=== PATIENT | male | born 1935 | race Caucasian/White ===

== ENCOUNTER 2019-09-25 11:50 | Day surgery (SDC) | payer MEDICARE ==
[~2019-09-25] VITALS: Ht 193 cm; Wt 82.5 kg
[~2019-09-25 11:50] MED LIST: ACETAMINOPHEN500 MG PO; AMLODIPINE BES2.5 MG PO; ASPIR 8181 MG PO; CO Q-10100 MG PO; FISH OIL-OMEGA1 EACH PO; LO-DOSE ASPIRIN81 M1 PO; VITAMIN D31000 UNI1 PO; WARFARIN SODIUM5 MG PO
--- NOTE | 2019-09-25 13:35 | NUR ---
09/25/19 1335 Josey Uriostegui 1328: PT ARRIVES TO PACU SLEEPY, BUT RESPONDS TO VERBAL STIMULATION. NO C/O PAIN OR DISCOMFORT. SREEDHAR 1335: DR. PINZON AT BEDSIDE.
--- NOTE | 2019-09-25 20:47 | OR ---
[facility] [address], [place] [address] Signed DATE OF OPERATION: 09/25/2019 SURGEON: Dede Pinzon MD PREOPERATIVE DIAGNOSES: 1. Significant episode of cervical dysphagia related to pill. 2. Upper GI showing marked aspiration without initiation of cough. POSTOPERATIVE DIAGNOSIS: No sign of neoplasm or esophageal web; normal upper endoscopy including stomach and duodenum. PROCEDURE: Esophagogastroduodenoscopy with biopsy. ANESTHESIA: Intravenous sedation, fentanyl 100 mcg, Versed 3 mg. INDICATION: This 84-year-old white man is a patient of Dr. Hilda Mckay and referred for an episode of significant cervical dysphagia related to swallowing a pill. An upper GI was performed, which was reported earlier that showed massive aspiration only variably initiating a cough. A speech therapy modified swallow was undertaken, on that occasion showing no aspiration. He seems not to have a problem with thickened liquids or solids. He has had no weight loss or significant dysphagia. He has been on warfarin and other medications. Notably, his brother of esophageal cancer. He is admitted to undergo upper endoscopy to better characterize the problem understanding the risks of bleeding, infection, and perforation. FINDINGS: There is no lesion to account for cervical dysphagia, specifically no neoplasm or esophageal web. The remaining study was normal as well. There was no sign of Parsons's epithelium. The flap valve was reasonably good. DESCRIPTION OF PROCEDURE: The patient was brought to the endoscopy suite and given topical Hurricaine spray hypopharyngeal anesthesia and placed in lateral decubitus position. He was given intravenous sedation to the point of slurred speech and nystagmus with full cardiopulmonary monitoring. A bite block was placed. An Olympus video upper endoscope was passed in the hypopharynx. The vocal cords appeared normal. Scope was able to be Electronically Signed By: DEDE PINZON MD 09/25/19 2047 PATIENT NAME: KERLINE WETZEL OPERATIVE REPORT DATE OF : 35 REPORT #: [id number] PHYSICIAN: DEDE PINZON MD PCP: HILDA MCKAY MD REPORT IS CONFIDENTIAL AND NOT TO BE RELEASED WITHOUT AUTHORIZATION [facility] [address], [place] [address] Signed passed in the esophagus without impediment. Examination throughout the entire esophagus showed it to be normal. Stomach was evaluated fully and was normal as well. The scope was passed through the pylorus into the duodenum, which was also normal. Biopsies were taken of the duodenum to assess for celiac disease. The scope was withdrawn and biopsied the antrum to assess for H pylori and so on. CLOtest was noted to be -15 minutes post procedure. Retroflexed view showed a good flap valve. The scope was withdrawn to the distal esophagus, which was biopsied also, which showed no sign of Parsons's or stricture or neoplasm. Midesophageal and proximal esophageal biopsies were obtained to assess for the eosinophilic esophagitis. The scope was removed. The patient was taken to recovery room in good condition. CONCLUDING DIAGNOSIS: Essentially normal exam. PLAN: We will review the pathology report. In the meantime, have him stay on thickened liquids or solids primarily. He will return to the ongoing care of Dr. Mckay. MD JESSICA Carreon/ROSARIOL /[id number] cc: Hilda Mckay MD Copies: HILDA MCKAY MD ~ Electronically Signed By: DEDE PINZON MD 09/25/19 2047 PATIENT NAME: KERLINE WETZEL JUSTUS OPERATIVE REPORT DATE OF : 35 REPORT #: [id number] PHYSICIAN: DEDE PINZON MD PCP: HILDA MCKAY MD REPORT IS CONFIDENTIAL AND NOT TO BE RELEASED WITHOUT AUTHORIZATION
--- NOTE | 2019-09-26 12:27 | PATH ---
[facility] [address] [place], [place] [address] Signed SPECIMEN(S): A DUODENUM NOS SPECIMEN(S): B ANTRUM/PYLORUS SPECIMEN(S): C LOWER ESOPHAGUS SPECIMEN(S): D MIDDLE ESOPHAGUS SPECIMEN(S): E UPPER ESOPHAGUS SPECIMEN SOURCE: A. DUODENUM NOS B. ANTRUM/PYLORUS C. LOWER ESOPHAGUS D. MIDDLE ESOPHAGUS E. UPPER ESOPHAGUS CLINICAL HISTORY: Dysphagia. Postop: Normal. MICROSCOPIC DESCRIPTION: A, B. Histologic sections of all submitted blocks are examined by light microscopy. These findings, together with the gross examination, support the pathologic diagnosis. C. Sections reveal biopsies of esophageal mucosa composed of stratified squamous nonkeratinizing epithelium. The basal cell layer is minimally prominent and rete ridges are mildly elongated. Small numbers of intraepithelial lymphocytes are present. Intraepithelial eosinophils are not a feature. A small amount of submucosa is present, containing small numbers of plasma cells and lymphocytes. No glandular mucosa is present. There is no evidence of malignancy or atypia. D. Sections reveal biopsies of esophageal mucosa composed of stratified squamous nonkeratinizing epithelium. The basal cell layer is not prominent and rete ridges are not elongated. Small numbers of intraepithelial lymphocytes are seen. Intraepithelial eosinophils are not a feature. No glandular mucosa is present. There is no evidence of malignancy or atypia. E. Sections reveal a biopsy of esophageal mucosa composed of stratified squamous nonkeratinizing epithelium. The basal cell layer is not prominent and rete ridges are not elongated. Small numbers of plasma cells and lymphocytes are present within the mucosa proper. No intraepithelial eosinophils are present. The submucosa contains small numbers of plasma cells and lymphocytes. No glandular mucosa is present. There is no evidence of malignancy or atypia. LJA:cml PATIENT NAME: KERLINE WETZEL PATHOLOGY DATE OF : 35 REPORT #: [id number] PHYSICIAN: ANDREW PATHOLOGY PCP: HILDA SQUIRES MD REPORT IS CONFIDENTIAL AND NOT TO BE RELEASED WITHOUT AUTHORIZATION [facility] [address] [place], [place] [address] Signed FINAL PATHOLOGIC DIAGNOSIS: A. Mucosa, duodenum, biopsy: - Duodenal mucosa with mildly blunted villous architecture. - Negative for acute inflammation and excess intraepithelial lymphocytes. B. Mucosa, antrum, biopsy: - No microscopic pathologic diagnosis. - Negative for the presence of bacteria morphologically consistent with Helicobacter on HE stained sections. C. Mucosa, lower esophagus, biopsy: - Mild chronic esophagitis with features suggestive but not diagnostic of reflux. D. Mucosa, middle esophagus, biopsy: - No microscopic pathologic diagnosis. E. Mucosa, upper esophagus, biopsy: - Mild chronic esophagitis. LJA:cml:C2NR GROSS DESCRIPTION: Five specimens are received in five containers, labeled "WL." A. The specimen, labeled "WL, duodenal biopsy," is received in formalin and consists of a single 0.2 cm fraire-brown tissue fragment. Specimen is entirely submitted in cassette (A1). B. The specimen, labeled "WL, antrum biopsy," is received in formalin and consists of two fraire tissue fragments both measuring 0.2 cm. Specimen is entirely submitted in cassette (B1). C. The specimen, labeled "WL, lower esophageal biopsy," is received in formalin and consists of two fraire tissue fragments both measuring 0.2 cm. Specimen is entirely submitted in cassette (C1). D. The specimen, labeled "WL, mid-esophageal biopsy," is received in formalin and consists of a single 0.3 cm fraire tissue fragment. Specimen is entirely submitted in cassette (D1). E. The specimen, labeled "WL, upper esophageal biopsy," is received in formalin and consists of two, 0.2 and 0.4 cm fraire tissue fragments. Specimen is entirely submitted in cassette (E1). AM (under the direct supervision of a pathologist) The Gross Description was prepared using a voice recognition system. The report was reviewed for accuracy; however, sound-alike word errors, addition and/or deletions may occur. If there is any question about this report, please contact Client Services. PATIENT NAME: KERLINE WETZEL PATHOLOGY DATE OF : 35 REPORT #: [id number] PHYSICIAN: ANDREW JOSEPH PCP: HILDA SQUIRES MD REPORT IS CONFIDENTIAL AND NOT TO BE RELEASED WITHOUT AUTHORIZATION [facility] [address] [place], [place] [address] Signed PERFORMING LABORATORY: The technical component was performed by [facility] [address] (Integration Solution Architect: Ana Laura Hall MD; CLIA# [id number]). [facility] [address] [address] (Integration Solution Architect: Otilio Ureña MD; CLIA# [id number]). Diagnostician: Otilio Ureña MD Pathologist Electronically Signed 09/26/2019 Copies: ~ PATIENT NAME: KERLINE WETZEL PATHOLOGY DATE OF : 35 REPORT #: [id number] PHYSICIAN: ANDREW PATHOLOGY PCP: HILDA SQUIRES MD REPORT IS CONFIDENTIAL AND NOT TO BE RELEASED WITHOUT AUTHORIZATION
== END 2019-09-25 14:15 | disposition home or self-care (01) ==
LOC: DS 11:50 → OPS 11:50 → DS 13:00 → OPS 13:00
PROVIDERS: Surgery
PROC: 0DB28ZX Excision of Middle Esophagus, Via Natural or Artificial Opening Endoscopic, Diagnostic (ICD-10-PCS; 2019-09-25)
PROC: 0DB38ZX Excision of Lower Esophagus, Via Natural or Artificial Opening Endoscopic, Diagnostic (ICD-10-PCS; 2019-09-25)
PROC: 0DB18ZX Excision of Upper Esophagus, Via Natural or Artificial Opening Endoscopic, Diagnostic (ICD-10-PCS; 2019-09-25)
PROC: 0DB78ZX Excision of Stomach, Pylorus, Via Natural or Artificial Opening Endoscopic, Diagnostic (ICD-10-PCS; 2019-09-25)
PROC: 0DB98ZX Excision of Duodenum, Via Natural or Artificial Opening Endoscopic, Diagnostic (ICD-10-PCS; principal; 2019-09-25 13:00)
DX: K20.9 Esophagitis, unspecified (principal); E78.5 Hyperlipidemia, unspecified; E03.9 Hypothyroidism, unspecified; I48.91 Unspecified atrial fibrillation; D68.8 Other specified coagulation defects; R45.89 Other symptoms and signs involving emotional state
CPT/HCPCS: G0500; J2250; J3010; J7121

== ENCOUNTER 2022-02-04 02:44 | Emergency (ER) | payer MEDICARE ==
[~2022-02-04] VITALS: Ht 193 cm; Wt 82.0 kg
[~2022-02-04 02:44] MED LIST changes: +AMLODIPINE BESYL5 MG PO
== END 2022-02-04 05:57 | disposition home or self-care (01) ==
LOC: ED 02:44
DX: R31.0 Gross hematuria (principal); R79.1 Abnormal coagulation profile; N28.9 Disorder of kidney and ureter, unspecified; I48.91 Unspecified atrial fibrillation; I10 Essential (primary) hypertension; Z79.899 Other long term (current) drug therapy; Z79.01 Long term (current) use of anticoagulants
CPT/HCPCS: 36415; 51702; 80053; 81001; 85025; 85610; 85730; 99283-25

== ENCOUNTER 2022-08-05 22:09 | Inpatient (IN) | payer MEDICARE ==
[~2022-08-05] VITALS: Ht 190.5 cm; Wt 82.9 kg
[~2022-08-05 22:09] MED LIST changes: +GEMTESA75 MG PO; +NORVASC5 MG PO; +NYSTATIN15 GM TOP
--- OUTSIDE RECORDS SUMMARY | 2022-08-05 22:12 | XMS ---
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 - 2 Visits in 30 Days CARE PROVIDERS [facility] Internal Medicine Current PHONE: [phone] [place] has no Care Guidelines for this patient. Charlie VISIT COUNT (12 MO.) 3 [facility] TOTAL 3 NOTE: Visits indicate total known visits. ED/UCC VISIT TRACKING (12 MO.) 08/05/2022 22:11 [facility] [place] TYPE: Emergency COMPLAINT: - FEVER, WEAKNESS, COVID+ 08/05/2022 12:16 [facility] [place] TYPE: Emergency COMPLAINT: - R WRIST WOUND 02/04/2022 02:45 [facility] [place] TYPE: Emergency COMPLAINT: - BLOOD IN URINE, CONSTIPATION DIAGNOSES: - senior care (current) use of anticoagulants - Other terminologist (current) drug therapy - Gross hematuria - Disorder of kidney and ureter, unspecified - Essential (primary) hypertension - Abnormal coagulation profile - Hematuria, unspecified - Unspecified atrial fibrillation INPATIENT VISIT TRACKING (12 MO.) No inpatient visits to display in this time frame [email or web address]
--- NOTE | 2022-08-06 06:45 | NUR ---
Admitted from ED at 0530,[id number] via stretcher, walked from stretcher to bed. alert,oriented, pleasant and cooperative. NEWHALEN using hearing aids. multiple scabbed over areas L knee, RFA and RW, echymotic area arms. pt on chronic Coumadin. Tele/cpox #[address], afib, denies c/o CP, dry non productive cough noted after completion of admit questionaire/assessment, On room air, lungs dim at bases L more than Right. turns and repositions self. wearing home compression stocking bilat, edema to ankles +1, very dry skin. used urinal, voided clear yellow urine. QS, on regular diet, would like to be kidney and coumadin friendly, kitchen notified. Oriented to room and Isolation procedures. 2 daugthers in room with pt.
--- NOTE | 2022-08-06 07:04 | NUR ---
Received patient report, eyes on patient. Patient resting in bed with daughter in room.
--- NOTE | 2022-08-06 09:39 | NUR ---
PT IN BED. FAMILY PRESENT IN ROOM. VITALS AND IS AND OS TAKEN. PT FAMILY ASKED OF WHAT "COVID IV HE RECIEVED LAST NIGHT". LET PT FAMILY KNOW I WILL LET RN KNOW OF QUESTION. NO NEEDS AT THIS TIME. CALL LIGHT WITHIN REACH.
--- NOTE | 2022-08-06 10:25 | NUR ---
MED REC COMPLETE
--- NOTE | 2022-08-06 11:30 | NUR ---
Checked on patient, patient is sleeping in bed with sister in room. O2 sats are good in the 90's.
--- NOTE | 2022-08-06 12:52 | NUR ---
PT IN BED. FAMILY MEMBER IN ROOM. I'S AND OS COMPLETE. NO NEEDS. CALL LIGHT WITHIN REACH.
--- NOTE | 2022-08-06 13:00 | NUR ---
Spoke with pt and daughters. Pt lives alone in [place], in the last few months. He denies any needs, daughter states he walks 4 miles per day. He does not use any DME. Pt Drives. He plans on dc to home when he is cleared for dc. Daughter lives 2 houses away and will check in on him frequently.
--- NOTE | 2022-08-06 14:19 | NUR ---
DUE TO PRECAUTIONS, I AM UNABLE TO VISIT PT. WILL FOLLOW NEEDED
--- NOTE | 2022-08-06 15:30 | NUR ---
Lung sounds assessed. Fine crackles to LLL. Dr. Funez notified. Orders to continue to monitor at this time. Patient educated on IS, demonstrated use with inspiration to 1750 on IS. Educated on importance of maintaining deep breathing with IV fluids infusing, Covid diagnosis and decreased activity. Verbalizes understanding.
--- NOTE | 2022-08-06 16:52 | NUR ---
Patient's labs improving, continuous fluids running throughout the day, with sufficient output.
--- NOTE | 2022-08-06 20:18 | EKG ---
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
--- NOTE | 2022-08-06 20:55 | NUR ---
Pt continues on Respiraoty Isolation precautions, covid+, on room air, lungs clear, dim LLQ and fine crackles , no cough at this time as per his statement. tele/cpox#[address] sats 97%, Sinus Rhtyhm, denies CP. Alert and orineted, cooperative with assessment, turns and repositions self in bed, IV infusing RW, patent, using urinal, clear yellow urine, QS. uses call light. fresh fluids at hands reach
--- NOTE | 2022-08-06 22:05 | NUR ---
CONT ON aIRBORNE PRECATUIONS, AWAKE, LAB IN ROOM, NO C/O PAIN, TELE/CPOX [address] SV RHYTHM, SATS 97%. IVF INFUSING, CALL LIGHT AND FLUIDS AT BEDSIDE.
--- NOTE | 2022-08-06 23:57 | NUR ---
pT CONT ON ISOLATION PRECAUTIONS. AWAKES EASILY, TELE/CPOX#[address], SATS 95%, SINUS RHTYTHM. NO CP NO DISTRESS. CALL LIGHT AND FLUIDS AT BEDSIDE, USED URINAL, VODIING QS.
--- NOTE | 2022-08-07 02:41 | NUR ---
PT AWAKES EASILY, NO DISTRESS, ONROOM AIR, CPOX/TELE INPLACE, SATS 97%, SV RHYTHM-SR, DENIES CP, NO SOB. TURNS AND REPOSITIONS SELF IN BED. USES URINAL. CALL LIGHT AND FLUIDS AT HANDS REACH
--- NOTE | 2022-08-07 05:05 | NUR ---
Pt continues on respiratory isolation precautions. On room air, lungs clear except at Left lower lobe dim and fine crackles, no cough stated this shift. alert oriented, cooperative, tolerating liquids well, no n/v, used urinal, voiding QS clear urine. No bm since admission. IVF infusing w/o problems
--- NOTE | 2022-08-07 08:10 | NUR ---
PT ASSESSMENT AND MEDICATION ADMINISTRATION COMPLETED. IV FLUIDS RUNNING, BAG / IS RUNNING AT 250ML/HR. PT C/O MILD PAIN IN BUE. NO OTHER COMPLAINTS ATT. PT IS A/O, RESPIRATIONS EVEN AND REGULAR. FAMILY AT BEDSIDE. HEARING AIDS CHARGING.
--- NOTE | 2022-08-07 08:16 | NUR ---
NURSE CHAVA HELPED PT THIS AM. SISTER IN ROOM. PT HAS NO OTHER NEEDS AT THIS TIME. CALL LIGHT WITHIN REACH.
--- NOTE | 2022-08-07 10:09 | NUR ---
ROUNDED ON PT. PT AMBULATED WITH WALKER FROM CHAIR TO BED. VS TAKEN. DENIES NEEDS ATT.
--- NOTE | 2022-08-07 10:30 | NUR ---
INTO ROOM TO SPEAK WITH PATIENT AND HIS DAUGHTER GIL. GIL STATES THE PATIENT IS IN NEED OF A NEW RECLINING CHAIR AT HOME AND WANTED TO KNOW IF WE HAD ANY SUGGESTIONS. I ADVICED THAT NORMALLY WE INSTRUCT PATIENT TO OUR LOCAL FURNITURE COMPANY SO THEY ARE ARE TO SIT IN THE CHAIR TO SEE WHICH FITS BEST. DISCUSSED THAT THE PATIENT HAS A FEW CANES AT HOME WHICH HE IS COMFORTABLE USING FOR NOW. INFORMATION FOR [facility] GIVEN IN CASE THE PATIENT IS IN NEED OF DME IN THE FUTURE. NO FURTHER QUESTIONS FROM PATIENT OR DAUGHTER AT THIS TIME.
--- NOTE | 2022-08-07 11:01 | NUR ---
TO PT ROOM FOR START OF FLUIDS. PT IS AT EOB WITH PHYSICAL THERAPY. PT IS A/O, RESPIRATIONS EVEN AND REGULAR. DENIES NEEDS/COMPLAINTS ATT. CALL LIGHT WITHIN REACH.
--- NOTE | 2022-08-07 13:38 | NUR ---
ROUNDED ON PT. PT AMBULATED WITH WALKER FROM CHAIR TO BED. PT IS A/O, RESPIRATIONS EVEN AND REGULAR. IV FLUIDS RUNNING. CALL LIGHT WITHIN REACH. FAMILY AT BEDSIDE.
--- NOTE | 2022-08-07 14:27 | NUR ---
PT LYING IN BED AFTER MEAL, VITALS ALYSON/O'S COMPLETED. NO OTHER NEEDS AT THIS TIME, CALL LIGHT IN REACH.
--- NOTE | 2022-08-07 15:00 | NUR ---
PT ASSESSMENT COMPLETED. NEW BAG OF LR HUNG. PT IS A/O, RESPIRATATIONS EVEN AND REGULAR. CALL LIGHT WITHIN REACH. FAMILY AT BEDSIDE.
--- NOTE | 2022-08-07 16:37 | NUR ---
TO PT ROOM FOR MEDICATION ADMINISTRATION. PT IS A/O, RESPIRATIONS EVEN AND REGULAR. C/O ARM PAIN. TYLENOL GIVEN. FAMILY AT BEDSIDE. IV FLUIDS RUNNING.
--- NOTE | 2022-08-07 18:37 | NUR ---
ROUNDED ON PT. VS TAKEN, I/O'S DOCUMENTED. PT IS A/O, RESPIRATIONS EVEN AND REGULAR. NEW BAG OF IV FLUIDS STARTED. CALL LIGHT WITHIN REACH.
--- NOTE | 2022-08-07 20:14 | NUR ---
cont on resp isolation precautions. alert and oriented, on room air, coop. no c/o pain cont on tele#4 cpox 98 sats. call light and fluids at bs
--- NOTE | 2022-08-07 22:13 | NUR ---
PT CONTINUES ON RESPIRATORY ISOLATION PRECAUTIONS, ON ROOM AIR. LUNGS CLEAR, DIM AT LLL, MOIST NON PRODUCTIVE COUGH NOTED AT THIST JACIEL, CLEARS SECREATIONS C/O SORE THROAT WORSE THAN ON ADMISSION. BACK OF THROAT REDDISH COLORED, SMALL 2-3 THORNTON COLORED PATCHES NOTED UPPER BACK OF THROAT, NOT CLEARED WITH SWALLOWING OR AFTER DRINKING FLUIDS. ICE CHIPS GIVEN, WILL NOTIFY MD FOR FURTHER EVALUATION. ALERT, AWAKE, ORIENTED, PLEASANT AND COOPERATIVE WITH ASSESSMENT, TOLERATING LIQUIDS WELL, NO C/O CP OR SOB, TELE/CPOX #[address] SATS 98%, SR AT THIST JACIEL. USES URINAL, VOIDING QS, USES CALL LIGHT AT HANDS REACH. IVF INFUSING W/O PROBLEMS RFA.
--- NOTE | 2022-08-08 01:02 | NUR ---
RESTING, EYES CLOSED, ON ROOM AIR, NO C/O PAIN, USES URINAL. IVF INFUSING. CALL LIGHT AT HANDS REACH
--- NOTE | 2022-08-08 05:17 | NUR ---
Pt cont on Respiratory Isolation precations. on room air, lungs clear except dim at LLL, moist, occassional non productive cough present. clears own oral secretions, c/o sore throat worse than on admit. red back of throat and small pineda discoloration not cleared after drinking water noted. will inform this am. pt tolerated ice chips and fluids well. IVF infusing at 250cc still, labs drawn has been slowly improving, see labs flow sheet. pt uses urinal, alert and oriented
--- NOTE | 2022-08-08 07:39 | NUR ---
Received patient report, eyes on patient. Patient resting in bed.
--- NOTE | 2022-08-08 09:00 | NUR ---
PATIENT ON CONTINUOUS FLUIDS, PRESSURE STOCKINGS REMOVED, PATIENT COMPLAINS OF SHOULDER PAIN IN LEFT ARM. WAS UNABLE TO SLEEP WELL THROUGHOUT THE NIGHT FROM THE PAIN EVEN AFTER RECEIVING TYLENOL. PATIENT GIVEN A DOSE OF PRN TYLENOL AND PAIN HAS IMPROVED. RESTING IN BED WITH SISTER IN ROOM.
--- NOTE | 2022-08-08 14:39 | NUR ---
IV FLUIDS DC'D IN COMPUTER SYSTEM. DR. REYNOLDS NOTIFIED. STATES HE WILL PUT IN AN ORDER FOR IV FLUIDS, DOES WANT TO CONTINUE THEM.
--- NOTE | 2022-08-08 17:04 | NUR ---
PATIENT REMAINS ON CONTINUOUS FLUIDS, LABS IMPROVING. PATIENT WORKED WITH PT TODAY, TOLERATED WELL. PATIENT COMPLAINS OF PAIN OF LEFT SHOULDER, MANEAGEABLE WITH TYLENOL.
--- NOTE | 2022-08-08 19:20 | NUR ---
pt sitting up in bed, awake, ivf infusing, no c/o pain. pt instructed on pot void residual bladder scanning, and need to call RN as sonn as he voided, stated understanding. Cont on isolation precautions, on room air
--- NOTE | 2022-08-08 22:46 | NUR ---
Pt on Respiratory Isolation Precautions. pleasant, cooperative, alert and oriented. Helps with repositioning in bed. On room air, lung much improved, clear bilat. moist non productive cough present. IS at bedside. encoruraged t use 10X?hr WA, hands on at this time, up to 1500 to 1750. temp 99.0 skin warm. cont to encourage IS usage. abd slightly firm at lower quads compared to yesterday. KEILY, had a bm 08/07, Pt denies abd pain. Bruising of arms and acabbed areas over arms and L knee much improved. L eye with slight redness at conjuctivae, denies visual chagnes or burning, no drainage. IVF infusing w/o problems. dressing over RW and L elbow present. noted to have 1+ edema and pendulous below L elbow area, and was grabbing L wrist with R arm. unknown cause, c/o light weakness since working with PT yesterday and c/o L shoulder pain, medicated with Tylenol, able to raise arm very slowly, pulses present. did not try and reach over head or across. No c/o sore throat today, "I feel better, ice chips helped". Pt had voided X2 40-60 minutes earlier using urinal. did not call RN, instructed again staed "I forgot, I will call you after I pee next time". Bladder scanned x3 and it showed 60-61cc post void. denies needing to use urinal again. voided 450cc Pt denies needing to get up to br to empty bladder "I can use urinal just laying here just fine" stated. each time, denies burning, pain or urgency when urinating. Call light at hands reach, tolerating fluids well, no emesis.
--- NOTE | 2022-08-08 23:47 | NUR ---
PT USED CALL LIGHT, VOIDED USING URINAL 125CC CLEAR YELLOW URINE. POST VOID RESIDUAL 40CC PER SCANNER, DENIES NEEDING TO USE URINAL AGAIN.
--- NOTE | 2022-08-09 00:19 | NUR ---
used call light, voided 125cc urine using urinal, in bed. bladder scanned less than 4cc in bladder as per scanner. Pt concerned that he still feels like his bladder is very full. scanned again slower, same results. no distention noted with assessment. will notify in am
--- NOTE | 2022-08-09 01:44 | NUR ---
Pt on resp isolation precautions. on room air, resting, eyes closed, hob elevated, no distress, cpox/tele#[address] afib, sats 99%.
--- NOTE | 2022-08-09 05:44 | NUR ---
pt awakees easily, coop with vitals , able to move L arm better, minimum of edema below elbow noted. standing scale weight done 84.9kg. pt admit weight was 76.4 bed scale. no changes lungs no sob, occ rare moist non productive cough present. tele#[address] Funez notified via phone of weight. will SL IVF after completion and he will reassess after labs results. Pt voided QS yellow urine, plus was incontinent of large amount of urine, attends and chux. skin care done, clean chux and attends given. Pt unaware that he was incontinent of urine. Noted that pt had a hard time moving from bed to scale. unsteady, wobbly reqired much assist. seemed to have increaed weakness of L leg. home pressure stockings were removed yeesteday. pt edemat to LE 1+ non pitting. SOB with exertion noted at that time. Back to bed, sats tele 94%
--- NOTE | 2022-08-09 05:56 | NUR ---
Pt continues on Respiratory Isolation Precautions. On room air, lungs clear bilat, moist non productive cough present ocassionally. Pt up to scale for standing scale weight of 84.9KG, SOB present with exertion, Pt required maximum of assist to sit edge of bed. seemed to favor L leg more slowly and weaker. scabbed saman over L knee healing, 1+ edema to ankles present. Pt also had some L shoulder pain and had some trouble lifiting arm, edema to area below L elbow was noted at begining of shift, resolved and much better rotation and elevation of L arm noted, improvcing bruising of arms. Pt was worried over not being able to empty his bladder and feeling very full bladder. was bladder scanned several times with minimum of urine left on bladder noted during scannning. see previous notes. Pt was incontinent of very large amount of urine when standing up. pt seemed unaware that he was wet. skinc are clean attends in place. IVF infusing, new orders from Dr Funez to when bag completed until MD sees lab results from this AM. Pt tolerating liquids well and uses call light. Tele/CPOX in place irregular rate and rhythm from SR, SVR to sinus sapna to afib with frequent SVPB's and PVC's pt denies chest pain. sats dropped to low 70's pt had takes finger pulse off and also seems to drop when he uses urinal and once when he was sleeping soundly. finger site changed. [place] wears hearing aids, pleasant and cooperative
--- NOTE | 2022-08-09 07:07 | NUR ---
SAMI at this time.
--- NOTE | 2022-08-09 07:20 | NUR ---
RECEIVED PATIENT REPORT, EYES ON PATIENT, PATIENT RESTING IN ROOM WITH DAUGHTER IN ROOM.
--- NOTE | 2022-08-09 12:03 | NUR ---
PATIENT IS SLEEPING IN CHAIR, WOULD LIKE TO REMAIN IN CHAIR FOR MOST OF THE DAY WITH FEET ELEVATED. PATIENT'S DAUGHTER IS REQUESTING TO SPEAK TO THE DOCTOR ABOUT DISCHARGE PLAN.
--- NOTE | 2022-08-09 12:15 | NUR ---
DR. REYNOLDS NOTIFIED FAMILY WOULD LIKE TO CONFERENCE CALL HIM TO ASK QUESTIONS. NUMBER FROM FAMILY PROVIDED. STATES HE WILL CALL THEM AND SPEAK WITH THEM TODAY.
--- NOTE | 2022-08-09 14:33 | NUR ---
VITALS AND I/O DONE. PATIENT IS RESTING IN CHAIR, DENIES OTHER NEEDS.
--- NOTE | 2022-08-09 16:24 | NUR ---
PATIENT HAS BEEN RESTING IN CHAIR FOR MOST OF THE DAY, HIS LABS HAVE IMPROVED AND HE HAS BEEN SALINE LOCKED. FAMILY HAD TELECONFERENCE WITH DR. BRONSON, PATIENT WAS UP IN ROOM WITH PT, TOLERATED WELL. TYLENOL GIVEN IN A.M. FOR PAIN CONTROL ON HIS LEFT SHOULDER, HIS PAIN HAS BEEN CONTROLLED SINCE TYLENOL WAS GIVEN.
--- NOTE | 2022-08-09 16:57 | NUR ---
Patient sitting up in recliner. Family member in room. Denies needs. Curtain left open to room so staff may visualize patient, per family request. Patient does call appropriately and has not attempted to get up without assist.
--- NOTE | 2022-08-09 19:41 | NUR ---
RECEIVED REPORT FROM DAY SHIFT RN. PATIENT IS RESTING IN BED. DAUGHTER AT BEDSIDE NO NEEDS NOTED. CALL LIGHT IN REACH.
--- NOTE | 2022-08-09 21:57 | NUR ---
PATIENT ASSESMENT COMPLETED. PATIENTS VITALS TAKEN AND RECORDED. INTAKE AND OUTPUT RECORDED. FRESH ICE WATER PROVIDED. PATIENT COMPLETED IS X3. PATIENT IS ON RA AND DENIES ANY SOB. PATIENTS PM MEDS GIVEN PER ORDER. PATIENT DENIES ANY PAIN. PATIENT REPOSITIONED IN BED. PAITENTS IV FLUSHED AND SL PER ORDER. PATIENT IS AAOX4. PATIENT DENIES ANY FURTHER NEEDS. CALL LIGHT IN REACH.
--- NOTE | 2022-08-10 00:17 | NUR ---
PATIENT IS RESTING IN BED WITH EYES CLOSED, RR 17. CALLL LIGHT IN REACH.
--- NOTE | 2022-08-10 02:57 | NUR ---
PATIENT REPOSITIONED IN BED. PATIENTS TELE BATTERY CHANGED. URINAL EMPTIED. FRESH ICE WATER PROVIDED. NO NEEDS NOTED. CALL LIGHT IN REACH. Pt REMAINS ON RA
--- NOTE | 2022-08-10 04:22 | NUR ---
PATIENT IS RESTING IN BED WITH EYES CLOSED, RR 16. CALL LIGHT IN REACH.
--- NOTE | 2022-08-10 06:21 | NUR ---
PATIENT IS RESTING IN BED. PATIENT REPOSITIONED. VITALS TAKEN AND RECORDED. URINAL EMPTIED. INTAKE AND OUTPUT RECORDED. WARM BLANKET X2 PROVIDED. PATIENT DENIES ANY PAIN. PATIENT DENIES ANY NEEDS. CALL LIGHT IN REACH. LAB IN TO DRAW BLOOD.
--- NOTE | 2022-08-10 07:05 | NUR ---
Received patient report, eyes on patient, patient is sleeping in bed.
--- NOTE | 2022-08-10 10:10 | NUR ---
INTO PATIENT TOOM TO DISCUSS ONGOING DISCHARGE DISPOSITION FOR THE PATIENT. PATIENT DAUGHTER GIL AT THE BEDSIDE. PATIENT AND GIL REQUESTING TO HAVE A CONFERENCE CALL WITH DAUGHTER MIKHAIL AND SON TERELL. CONFERENCE CALL FACILITATED BY DAUGHTER GIL. DISCUSSED WITH THE PATIENT AND FAMILY OPTION REGARDING PLACEMENT OF THE PATIENT TO SNF, PENITENTIARY OR DISCHARGE TO HOME. THE FAMILY IS VERY HESITANT TO HAVE THE PATIENT DISCHAGED HOME WITHOUT 24 HOUR CARE DUE TO HIS RECENT FALL AT HOME. MIKHAIL ALSO STATES THAT LAST NIGHT DURING HER VISIT THE PATIENT WAS HAVING DIFFICULTIES GETTING UP FROM THE CHAIR TO THE RESTROOM. DISCUSSED WITH FAMILY THAT THE PATIENT MAY NOT QUALIFY FOR SNF PLACEMENT. IT IS ALSO IN MY OPINION THAT THE PATIENT WOULD NOT THRIVE IN A SNF GIVEN HIS PRIOR INDEPENDANCE. PRIOR TO HIS FALL THE PATIENT WAS WALKING DAILY, SOME OF WHICH INCLUDED MULTIPLE SETS OF STAIR. DURING THIS CONVERSATION THE PATIENT AND FAMILY STATES HE HAD BEEN DEALING WITH INTERMITTANT [facility] FOR THE PAST FEW YEARS. THE PATIENT STATES HE WAS TO HAVE A VISIT WITH THE [facility] IN [facility], BUT HAS CANCELED. WITH FURTHER QUESTIONING THE PATIENT WAS SUFFERING FROM SOME SYMPTOMS THE WEDNESDAY PRIOR TO HIS FALL. PATIENTS SON TERELL DISCUSSING POSSIBILITY OF PLACEMENT TO THE [facility] IN [place] THE PATIENTS HAD LIVED THERE IN THE PAST AND THE PATIENT ENJOYED THE FACILITY. TERELL STATES HE WOULD MAKE CONTACT WITH THE [facility] TO INQUIRE ABOUT ROOM AVAILABILITY AND COVID POLICY. DISCUSSED SEVERAL CONCERNS ABOUT THE PATIENT CARE WITH THE FAMILY. WHEN ASKED THE PATIENT STATES HE AGREES TO PLACEMENT, BUT WOULD LOVE TO LIVE INDEPENDENTLY AGAIN. WILL MEET AGAIN WITH PATIENT AND FAMILY AT 1500 TODAY. WILL CONTACT VIMAL SANON ANOTHER PLACEMENT OPTION PRIOR TO THIS MEETING.
--- NOTE | 2022-08-10 12:15 | NUR ---
In room with patient, observed that his right forearm is red, edematous and warm to the touch. Notified Dr. Tay verbally of findings.
--- NOTE | 2022-08-10 14:22 | NUR ---
PATIENT IN BED RESTING, VISITOR IN ROOM. VITALS AND I&O'S CHARTED. SEKOU COFFEY RN NOTIFIED. CALL LIGHT IN REACH. NO FURTHER NEEDS AT THIS TIME.
--- NOTE | 2022-08-10 14:26 | NUR ---
Sitting up in bed. Family at bedside. States he is not feeling as well today. Temp is elevated. Dr. Tay notified. No new orders at this time. Did inform patient and family elevated temp could be related to Covid. Will continue to monitor at this time.
--- NOTE | 2022-08-10 15:00 | NUR ---
CONFERENCE CALL WITH PATIENT, DAUGHTER GIL, SON TERELL AND DAUGHTER JEFF AT THE BEDSIDE. ADVISED THAT I HAD SPOKE WITH NITIN AT [facility], THEY WOULD BE ABLE TO ACCEPT THE PATIENT ON DAY 9 OF HIS COVID QUARANTINE. PER TERELL PATIENT SON HE HAS SPOKEN WITH THE ADMINISTRATION AT [facility] [place] THEY HAD A PREVIOUS FAMILY MEMBER THERE. AFTER SPEAKING WITH HAROON AT THE [facility] IT HAS BEEN DETERMINED THAT THEY COULD ACCEPT THE PATIENT ON RESPITE AT THIS TIME. TERELL CONVEYS THAT [facility] HAS VERIFIED THAT THE PATIENT SECONDARY INSURANCE WILL COVE MOST OF THE COST. AT THIS TIME THE PATIENT AND FAMILY AGREES TO REFERRAL FOR PLACEMENT TO BE SENT TO THE [facility]. CONTACT INFORMATION: FRANCIS AT THE [facility], PHONE # [phone], FAX # [phone]. WILL FOLLOW UP WITH FACILITY REGARDING PLACEMENT.
--- NOTE | 2022-08-10 17:01 | NUR ---
Patient remained in bed for most of the day, was up with PT and tolerated well. Had one episode of incontinence, had bedding changed. Patient's temperature is elevated at 100.6 this afternoon and has redness and dependent edema in left forearm, dr. Tay has been notified. Patient's family remains in his room and is very involved in his care.
--- NOTE | 2022-08-10 19:27 | NUR ---
REPORT RECEIVED FROM HI GARDNER. IMAGING IN ROOM. PT RESTING IN BED, RESPIRATIONS EVEN. CALL LIGHT IN REACH.
--- NOTE | 2022-08-10 22:45 | NUR ---
PICTURES TAKEN OF POSSIBLE CELLULITIS ON L FOREARM AND PLACED IN CHART. REDNESS OUTLINED WITH MARKER. R ARM BICEP CIRC. 11 CM, L ARM BICEP CIRC. 12.5 CM. R ARM UPPER FOREARM 11.5 CM, L ARM UPPER FOREARM 13.25 CM. PT DENIES ANY PAIN IN L ARM BUT IS UNABLE TO FULLY EXTEND ARM. L FOREARM FEELS WARM TO THE TOUCH.
--- NOTE | 2022-08-10 22:48 | NUR ---
PT ASSESSMENT COMPLETED, VITAL SIGNS AND I&O'S DOCUMENTED. PM MEDICATION GIVEN PER EMAR. PT A&O X4 AND DENIES ANY PAIN AT THIS TIME. L ARM WARM TO THE TOUCH AND REDNESS THROUGHOUT THE LOWER ARM. PICTURES TAKEN AND PLACED IN CHART, REDNESS OUTLINED WITH MARKER. PT ABLE TO EAT A SMALL SNACK. EDUACTED ON USE OF IS. BED RAILS UP X2 AND CALL LIGHT IN REACH. CONINUOUS CPOX MONITORING PER ORDERS. NO FURTHER NEEDS.
--- NOTE | 2022-08-11 00:20 | NUR ---
PT RESTING IN BED, RESPIRATIONS EVEN. HEARING AIDS PLUGGED IN PER REQUEST OF PT. DENIES FURTHER NEEDS. CALL LIGHT IN REACH, BED RAILS UP X2.
--- NOTE | 2022-08-11 02:15 | NUR ---
PT RESTING IN BED, EYES CLOSED, RR EVEN. L ARM ASSESSED AND REMAINS EDEMATOUS, RED, AND WARM. CONTINUOUS CPOX MONITORING. DENIES FURTHER NEEDS AT THIS TIME. CALL LIGHT IN REACH
--- NOTE | 2022-08-11 04:49 | NUR ---
PT RESTING IN BED, EYES CLOSED. 96% ON RA PER CONTINUOUS CPOX MONITOR. CALL LIGHT IN REACH, SIDE RAILS UP X2.
--- NOTE | 2022-08-11 05:35 | NUR ---
PT ASSESSMENT COMPLETED, VITAL SIGNS AND I&O'S DOCUMENTED. L FOREARM ASSESSED AND REMAINS EDEMATOUS AND RED. DENIES PAIN OR SOB. NO FURTHER NEEDS AT THIS TIME. CALL LIGHT IN REACH, BED RAILS UP X2.
--- NOTE | 2022-08-11 07:50 | NUR ---
PT IN BED. PT ASSISTED TO CHAIR BY FWW AND 1 SIEBEL ARCHITECT. WARM BLANKET AND ICE WATER GIVEN. BED MADE. NO NEEDS. CALL LIGHT WITHIN REACH.
--- NOTE | 2022-08-11 08:56 | NUR ---
MORNING ASSESSMENT COMPLETE. PT VITALS AND I&O'S RECORDED. PT JUST FINISHED BREAKFAST SITTING IN CHAIR TALKING WITH FAMILY. PT IS COMFORTABLE AND STATES ARM IS FEELING BETTER 0/10 PAIN. PT STATES NO FURTHER NEEDS AT THIS TIME. CALL LIGHT WITHIN REACH.
--- NOTE | 2022-08-11 09:27 | NUR ---
PATIENT UP TO BATHROOM WITH SBA AND FWW TO VOID AND BM. PHYSICAL THERAPY IS IN TO WORK WITH PATIENT.
--- NOTE | 2022-08-11 10:15 | NUR ---
In and spoke with family and Julieth added brother and sister on to conference call. Updated I have spoken with Dr. Tay and [facility]. Discussed our conversations. They would like dad to go to [facility] on Wednesday. Called Toribio back and let her know family are wanting pt to admit on Wednesday. [facility] will transport. Toribio would like the pt to admit no later than 1 pm. Tentatively set a dc time of 8 am on Wednesday.
--- NOTE | 2022-08-11 10:22 | NUR ---
IN TO ANSWER CALL LIGHT ABOUT CPOX ALARM. ALARM WAS NO LONGER ACTIVE WHEN I ENTERED THE ROOM. EDUCATED PATIENT AND FAMILY ABOUT CPOX PARAMETERS AND SIGINIFICANCE OF CPOX ALARM. PT SITTING IN CHAIR COMFORTABLY WATCHING TV. FEET ELEVATED. PILLOW PLACED UNDER FEET. CALL LIGHT WITHIN REACH. PT AND FAMILY STATE NO FURTHER NEEDS AT THIS TIME.
--- NOTE | 2022-08-11 10:59 | NUR ---
Spoke with Toribio from [facility]. She states they can accept this pt 9-10 days from he + covid test. This would be Wednesday. They are familiar with this family as pt lived with them for 5 years. They are not an SNF, but pt has termination clerk care benefits which will pay for him to go there. She would need, Signed orders, RX for any narcotics, signed order for PT. I will update Dr. Tay and the family.
--- NOTE | 2022-08-11 11:36 | NUR ---
IN FOR ROUNDING. PT RECLINED IN CHAIR RESTING COMFORTABLY WATCHING TV. PILLOW UNDERNEATH FEET AND FEET ELEVATED. FAMILY AT BEDSIDE. PT DENIES PAIN OR NAUSEA. PT STATES NO FURTHER NEEDS AT THIS TIME. CALL LIGHT WITHIN REACH.
--- NOTE | 2022-08-11 12:30 | NUR ---
REPORT GIVEN TO JJ LOUIS.
--- NOTE | 2022-08-11 12:30 | NUR ---
REPORT RECEIVED FROM PIPEMAN CARE ASSUMED. PT RESTING IN BED IS PRESENT IN THE ROOM. NEEDED ITEMS AT BEDSIDE
--- NOTE | 2022-08-11 13:56 | NUR ---
DUE TO PRECAUTIONS I AM UNABLE TO VISIT IN PERSON WITH PT. HE IS SCHEDULED TO DC TODAY. WILL FOLLOW
--- NOTE | 2022-08-11 14:00 | NUR ---
PT CONTINUES UP IN THE RECLINER FAMILY PRESENT X2. AGREES HE IS COMFORTABLE DENIESW NEED OF ANYTHING
--- NOTE | 2022-08-11 15:55 | NUR ---
SBA WHILE PT AMBULATED SEVERAL LAPS IN THE ROOM. PRESSURE RELIEF DISCUSSED WITH PT AND DAUGHTER WHO REMAINS PRESENT. PT WALKS FOR A LONG TIME APPEARS STEADY ON HIS FEET, RETURNS TO RECLINER. FRESH H20 TO CHAIR SIDE DENIES NEED OF OTHER ITEMS
--- NOTE | 2022-08-11 16:58 | NUR ---
DINNER GIVEN TO PT. PT RESTING COMFORTABLY IN CHAIR. FEET AND HOB ELEVATED. DAUGHTER AT BEDSIDE. PT DENIES PAIN OR NAUSEA. PT STATES NO FURTHER NEEDS AT THIS TIME.
--- NOTE | 2022-08-11 19:38 | NUR ---
RECEIVED REPORT FROM OFFGOING SHIFT, ACCEPTING CARE FOR THIS PATIENT. PT RESTING IN ROOM, CALL LIGHT WITHING REACH, NO COMPLAINTS AT THIS TIME.
--- NOTE | 2022-08-11 20:47 | NUR ---
IN PT ROOM FOR ROUNDING, VS, AND ASSESSMENT. PT IS IN GOOD SPIRITS, ABLE TO MAKE NEEDS KNOWN. PT WAS ASSISTED TO BED, WARM BLANKET PROVIDED. PT CALL LIGHT IN REACH, NO COMPLAINTS OF PAIN OR DISCOMFORT.
--- NOTE | 2022-08-11 23:59 | NUR ---
IN PT ROOM FOR ROUNDING, PT RESTING EASILY, NO SIGNS OF DISTRESS, BREATHING EVEN AND UNLABORED. CALL LIGHT WITHIN REACH.
--- NOTE | 2022-08-12 01:21 | NUR ---
IN PT ROOM FOR ROUNDING, PT RESTING EASY, BREATHING EASY, UNLABORED, NO COMPLAINTS OF PAIN OR DISCOMFORT.
--- NOTE | 2022-08-12 02:09 | NUR ---
IN PT ROOM FOR ROUNDING. PT RESTING COMFORTABLY, BREATHING EVEN, UNLABORED. PT CALL LIGHT IN REACH, NO COMPLAINT OF PAIN OR DISCOMFORT.
--- NOTE | 2022-08-12 03:05 | NUR ---
PT RESTING EASY IN ROOM, BREATHING EVEN AND UNLABORED. PT CALL LIGHT IN REACH, NO INDICATIONS OF PAIN OR DISCOMFORT.
--- NOTE | 2022-08-12 05:30 | NUR ---
IN PT ROOM FOR ROUNDING. PT RESTING, BREATHING EVEN AND UNLABORED. NO SIGNS OF PAIN OR DISCOMFORT. PT CALL LIGHT IS IN REACH
--- NOTE | 2022-08-12 07:25 | NUR ---
THIS RN RECIEVED SHIFT REPORT. PT RESTING AT THIS TIME. CALL LIGHT WITHIN REACH.
--- NOTE | 2022-08-12 08:35 | NUR ---
MORNING ASSESSMENT COMPLETE. PT COMPLAINED OF NO PAIN AT THIS TIME. RR EVEN AND UNLABORED. HR REGULAR. LUE EDEMA NOTED, REDUCED FROM PREVIOUSLY MARKED OUTLINE. NO REDDNESS AND WARMTH NOTED. PT STATES PAIN AND ROM IMPROVED. DAUGHTER AT BEDSIDE. CALL LIGHT WITHIN REACH.
--- NOTE | 2022-08-12 10:37 | NUR ---
PT LAYING IN BED TALKING ON THE PHONE. DAUGHTER AT BEDSIDE. CALL LIGHT WITHIN REACH.
--- NOTE | 2022-08-12 11:30 | NUR ---
Spoke with daughter, Irish and pt. Pt would like a walker, he is using when he walks with PT and he states his daughters don't want to transport him without one. Spoke with Dr. Voss and reviewed PT notes. Pt is use a FWW when ambulating with PT. Faxed H&P, progress notes, RX, and PT notes to [facility] and and spoke with Diamante,requested delivery tomorrow. NOtified [facility] pt will discharge to [place] earlier Wednesday AM.
--- NOTE | 2022-08-12 12:09 | NUR ---
PT EATING LUNCH. HAS NO COMPLAINTS AT THIS TIME. DAUGHTER AT BEDSIDE. CALL LIGHT WITHIN REACH.
--- NOTE | 2022-08-12 12:57 | NUR ---
PT LAYING IN BED WATCHING TV. PT HAS NO CONCERNS AT THIS TIME. CALL WITHIN REACH.
--- NOTE | 2022-08-12 13:40 | NUR ---
VS & I/O DONE AT THIS TIME. PT LAYING IN BED. NO COMPLAINT OF PAIN. DAUGHTER AT BEDSIDE. CALL LIGHT WITHIN REACH.
--- NOTE | 2022-08-12 14:49 | NUR ---
PT RESTING IN BED. DAUGHTER AT BEDSIDE. CALL LIGHT WITHIN REACH.
--- NOTE | 2022-08-12 15:15 | NUR ---
AFTERNOON ASSESSMENT COMPLETE. PT SITTING UP IN CHAIR. PT REPORTS NO PAIN AT THIS TIME. CALL LIGHT WITHIN REACH. DAUGHTER AT BEDSIDE.
--- NOTE | 2022-08-12 16:15 | NUR ---
PT TRANSFERED FROM CCU TO ROOM 112 VIA STRETCHER. A&O X3 BUT OFTEN FORGETFUL. ORIENTED TO CALL LIGHT, WITHIN REACH AND BED ALARM ON. ON 6L HIGH-FLOW AND TOLERATING WELL. RAC/RFA IV FLUSHED WITHOUT DIFFICULTY, AND SL. ASSESSED MIDLINE INCISION CDI WITH SAUL INTACT. PT REPORTS TENDER WHEN PALPATED. PT DENIES PAIN OR NEEDS AT THIS TIME.
--- NOTE | 2022-08-12 16:41 | NUR ---
Received phone message from Barby at [facility]. She states she thinks they will be able to accept this pt. She spoke with family and they wanted time to discuss.
--- NOTE | 2022-08-12 17:40 | NUR ---
PT SITTING UP IN CHAIR EATING DINNER. CALL LIGHT WITHIN REACH. DAUGHTER AT BEDSIDE. DENIES FURTHER NEEDS AT THIS TIME.
--- NOTE | 2022-08-12 18:01 | NUR ---
PT UP IN CHAIR. PT REPORTS NO PAIN AT THIS TIME. I&O AND VS DONE AT THIS TIME. CALL LIGHT WITHIN REACH. DENIES ANY FURTHER NEEDS.
--- NOTE | 2022-08-12 19:10 | NUR ---
SHIFT REPORT RECEIVED FROM DAYSHIFT JJ DURAN AND JJ OWEN, pt AWAKE AND RESTING IN BED. POSITIVE FOR COVID, ON RA. RR EVEN AND UNLABORED, NO DISTRESS NOTED. pt DENIES NEEDS OR CONCERNS, CALL LIGHT IN REACH.
--- NOTE | 2022-08-12 20:34 | NUR ---
ASSESSMENT COMPLETE, SCHEDULED MEDS GIVEN (SEE EMAR). pt A/OX4, VSS. pt ON RA, DENEIS PAIN AND NAUSEA BUT REQUESTS SCHEDULED EVENING TYLENOL D/T "ARTHRITIS PAIN AT NIGHT". IV SITE WNL, FLUSHES EASILY AND REMAINS SALINE LOCKED. HEARING AIDS PLACED IN PLASTIC SURGERY ASSISTANT PER pt REQUEST, FRESH ICE WATER PROVIDED. NO ADDITIONAL NEEDS, BED ALARM ON FOR SAFETY CURTAINS CLOSED PER pt REQUEST TO ASSIST IN SLEEP. BOARD UPDATED.
--- NOTE | 2022-08-12 23:21 | NUR ---
ROUNDED ON pt, pt RESTING IN BED WITH EYES CLOSED. ON RA, RR EVEN AND UNLABORED. NO DISTRESS NOTED, CALL LIGHT IN REACH AND BED ALARM ON CURTAINS FULLY CLOSED TO PROMOTE REST.
--- NOTE | 2022-08-13 00:58 | NUR ---
ROUNDED ON pt, pt AWAKE AND RESTING IN BED. DECLINES ELEVATING LUE AT THIS TIME, pt EDUCATED ON BENEFITS OF ELEVATION. pt CONTINUES TO KINDLY DECLINE. NO NEEDS OR CONCERNS, CALL LIGHT IN REACH. BED ALARM ON.
--- NOTE | 2022-08-13 01:41 | NUR ---
EMPTIED URINAL FOR pt, APPROX 500MLS OUTPUT NOTED-YELLOW IN COLOR. ASSESSMENT COMPLETE, NO ACUTE CHANGES. pt DENEIS PAIN AND NAUSEA, REMAINS ON RA. RR EVEN AND UNLABORED. CALL LIGHT IN REACH. BED ALARM ON FOR SAFETY.
--- NOTE | 2022-08-13 05:06 | NUR ---
ROUNDED ON pt, pt AWAKE AND RESTING IN BED. NO NEEDS OR CONCERNS VERBALIZED. CALL LIGHT IN REACH. BED ALARM REMAINS ON FOR SAFETY.
--- NOTE | 2022-08-13 06:14 | NUR ---
VS AND I&O'S CHARTED. FRESH WATER PROVIDED. NO ADDITIONAL NEEDS, LUE REMAINS ELEVATED, +2 EDEMA REMAINS NOTED TO LEFT FOREARM/ELBOW AREA. CALL LIGHT IN REACH.
--- NOTE | 2022-08-13 07:15 | NUR ---
RECIEVED SHIFT REPORT. PT RESTING IN BED WITH EYES CLOSED. BREATHING EVEN AND UNLABORED. CALL LIGHT WITHIN REACH.
--- NOTE | 2022-08-13 08:30 | NUR ---
MORNING ASSESSMENT COMPLETE. PT LAYING IN BED. PT STATED HE SLEPT REALLY WELL LAST NIGHT. DENIES ANY PAIN AT THIS TIME. LEFT EXTREMITY ELEVATED ON A PILLOW. NO REDDNESS OR PAIN NOTED. BREAKFAST TRAY SET UP. CALL LIGHT WITHIN REACH. DAUGHTER AT BEDSIDE.
--- NOTE | 2022-08-13 10:30 | NUR ---
PT UP IN ROOM WALKING WITH PHYSICAL THERAPY. DAUGHTER AT BEDSIDE.
--- NOTE | 2022-08-13 11:46 | NUR ---
PT SITTING UP IN CHAIR READY FOR LUNCH. DENIES PAIN AFTER PHYSICAL THERAPY. CALL LIGHT WITHIN REACH. DAUGHTER AT BEDSIDE.
--- NOTE | 2022-08-13 11:57 | NUR ---
Took patients vitals in AM. I&O complete. Patient wanted to sit on side of bed to shave his face. Before he could, physical therapy entered and worked with patient. While she was working with patient, I changed bed linens. Patient wanted to sit up in chair so he could finish up his ADL's.
--- NOTE | 2022-08-13 12:30 | NUR ---
PT UP IN RECLINER EATING LUNCH. CALL LIGHT WITHIN REACH. DENIES FURTHER NEEDS AT THIS TIME. DAUGHTER AT BEDSIDE.
--- NOTE | 2022-08-13 12:36 | NUR ---
PT STILL UNDER PRECAUTIONS, WILL FOLLOW ABLE
[2022-08-13] MEDS ORDERED: CEPHALEXIN500 MG PO (13:23)
[2022-08-13] MEDS ORDERED: WARFARIN SODIUM5 MG PO (13:24)
[2022-08-13] MEDS ORDERED: NORVASC5 MG PO (13:24)
--- NOTE | 2022-08-13 13:30 | NUR ---
CASE MANAGEMENT IN ROOM AT THIS TIME. PT REMAINS IN THE RECLINER AND DENIES ANY FURTHER NEEDS. CALL LIGHT WITHIN REACH. DAUGHTER AT BEDSIDE.
--- NOTE | 2022-08-13 14:50 | NUR ---
Spoke with daughter and pt. They deny any question. Walker was delivered today. Dr. Tay is completing orders for dc tomorrow. Will fax orders and papers as requested to [facility] when completed. Plan is for pt to leave by [phone] [phone].
--- NOTE | 2022-08-13 15:18 | NUR ---
AFTERNOON ASSESSMENT COMPLETE. PT UPRIGHT IN CHAIR. PT DENIES ANY PAIN AT THIS TIME. LEFT EXTREMITY NO CHANGES NOTED. ELEVATED ON PILLOW. CALL LIGHT WITHIN REACH. DAUGHTER AT BEDSIDE.
--- NOTE | 2022-08-13 17:52 | NUR ---
PT UP IN CHAIR. PIER RUNNER IN ROOM DOING VS AND I&O'S AT THIS TIME. DENIES FURTHER NEEDS AT THIS TIME. CALL LIGHT WITHIN REACH. DAUGHTER AT BEDSIDE.
--- NOTE | 2022-08-13 18:34 | NUR ---
PT SITTING IN RECLINER. CALL LIGHT WITHIN REACH.
--- NOTE | 2022-08-13 19:10 | NUR ---
RECEIVED REPORT FROM BRAYDEN GARDNER. PT IS SITTING IN CHAIR WATCHING TV. CALL LIGHT WITHIN REACH. NO FURTHER NEEDS AT THIS TIME.
--- NOTE | 2022-08-13 20:30 | NUR ---
PERFORMED PT ASSESSMENT, STRAW HAT PRESSER, AND VS. VSS. ASSISTED PT W/AMBULATION FROM CHAIR TO BED W/FWW. PT GAIT IS WEAK. PT REMAINS ON RA W/O2 SATS AT 100%. LUNGS ARE CLEAR THROUGHOUT. PT REPORTS PAIN AT 0/10 AND NO NUMBNESS/TINGLING IN EXTREMETIES. PULSES PRESENT THROUGHOUT AND KNEE HIGH COMPRESSION STOCKINGS IN PLACE ON LEGS BILAT. PT IS A&O. FRESH ICE WATER PROVIDED, CALL LIGHT WITHIN REACH, IV FLUSHED/SALINE LOCKED, NO FURTHER NEEDS AT THIS TIME.
--- NOTE | 2022-08-14 01:21 | NUR ---
PT CURRENTLY RESTING IN BED WITH EYES CLOSED. RESPIRATIONS ARE EVEN AND UNLABORED, NO SIGNS OF DISTRESSED. CALL LIGHT WITHIN REACH.
--- NOTE | 2022-08-14 06:20 | NUR ---
PERFORMED MORNING ASSESSMENT. NO ACUTE CHANGES FROM PREVIOUS ASSESSMENT. RECORDED 1100 FOR OUTPUT OVER THE NIGHT. LUNG SOUNDS REMAIN CLEAR. CELLULITIS IS +1 EDEMA WITH SLIGHT WARMTH. PT REPORTS PAIN 0/10. PT STATES NO NEW DIZZINESS, NUMBNESS/TINGLING, CHEST PAIN, OR NAUSEA. NOW RESTING IN BED ALERT & ORIENTED. CALL LIGHT WITHIN REACH, NO FURTHER NEEDS AT THIS TIME.
--- NOTE | 2022-08-14 06:56 | NUR ---
UNEVENTFUL NIGHT FOR PT. PT SLEPT THROUGH THE NIGHT. VSS. PAIN REPORTED 0/10. SLIGHT GENERALIZED EDEMA MARKED IN LEFT FA ALONG W/BRUISES FROM FALL. PT REMAINS ON RA. PULSES PRESENT THROUGHOUT AND COMPRESSION STOCKINGS ON BLE. GAIT IS WEAK AND PT USES FWW W/1PA. LUNGS SOUNDS ARE CLEAR THROUGHOUT. SUFFICIENT OUTPUT. PT TO DISCHARGE TO [place], [place].
--- NOTE | 2022-08-14 07:35 | NUR ---
PATIENT UP IN CHAIR, AM CARE COMPLETED. VITALS COMPLETED AND PT IS DRESSED, NO OTHER NEEDS AT THIS TIME. CALL LIGHT WITHIN REACH.
--- NOTE | 2022-08-14 08:06 | NUR ---
IV REMOVED WITH CATH INTACT. VITAL STABLE. DISCHARGE INSTRUCTIONS REVIEWED WITH PT. DAUGHTER HERE TO TRANSPORT. PT. LEFT WITH ALL BELONGINGS VIA WHEELCHAIR WITH GROOMING ASSISTANT.
== END 2022-08-14 08:00 | disposition home or self-care (01) | DRG 557 ==
LOC: ED 22:09 → MS 22:12
PROVIDERS: ADMIT Family Medicine; ATTEND Internal Medicine
PROC: 8E0ZXY6 Isolation (ICD-10-PCS; principal; 2022-08-08)
DX: M62.82 Rhabdomyolysis (principal); U07.1 COVID-19; L03.114 Cellulitis of left upper limb; I13.0 Hypertensive heart and chronic kidney disease with heart failure and stage 1 through stage 4 chronic kidney disease, or unspecified chronic kidney disease; I48.91 Unspecified atrial fibrillation; M25.512 Pain in left shoulder; Z79.01 Long term (current) use of anticoagulants; Z90.49 Acquired absence of other specified parts of digestive tract; Z98.890 Other specified postprocedural states; Z79.899 Other long term (current) drug therapy; I50.9 Heart failure, unspecified; W18.30XA Fall on same level, unspecified, initial encounter
CPT/HCPCS: 36415; 70450; 71045; 73030; 73070; 73090; 80048; 80053; 81001; 82553; 83880; 84484; 85025; 85610; 87502; 93005; 93010; 94760; 94762; 96361; 96374; 96375; 97110; 97116; 97162; 99285-25; A9270; J1940; J7121; U0003

== ENCOUNTER 2023-07-05 06:47 | Day surgery (SDC) | payer MEDICARE ==
[2023-07-01 13:47] VITALS: BP 150/69
[~2023-07-05] VITALS: Ht 190.5 cm; Wt 80.0 kg
[~2023-07-05 06:47] MED LIST changes: +AMOX TR-K CLV1 EAC1 PO; +CEPHALEXIN500 MG PO; +JANTOVEN5 MG PO; +OMEGA 3 FISH O1 EACH PO; +TORSEMIDE20 MG PO; +VITAMIN B-121000 MCG PO
--- NOTE | 2023-07-05 07:10 | NUR ---
CONNECTED WITH FAMILY IN HALLWAY. EXERCISED MINISTRY OF PRESENCE TALKED OF SHARED CONNECTIONS AND EXTENDED FAMILY. DENIED ANY NEEDS.
[2023-07-05 07:23] VITALS: BP 154/68
[2023-07-05 07:57] LABS: INR 1.37 (0.80-1.30); PROTIME 16.4 Sec (11.2-14.2)
--- NOTE | 2023-07-05 11:33 | NUR ---
07/05/23 1133 Taylor Jarquin 1129-PT TO PACU IN SF POSITION. DOES NOT RESPOND TO VERBAL OR TACTILE STIMULI. BREATHING EASY AND UNLABORED WITH ORAL AIRWAY IN PLACE. SPO2 >95% ON 8 L O2 VIA SIMPLE MASK.
[2023-07-05 11:59] VITALS: BP 138/61
--- NOTE | 2023-07-05 12:03 | NUR ---
RETURNED FROM PACU. TO GO HOME WITH PIÑA. FAMILY IN ROOM.
[2023-07-05 12:55] VITALS: BP 159/73
--- NOTE | 2023-07-05 13:41 | NUR ---
1315 SAT ON SIDE OF BED X5 MIN THEN STOOD FOR FEW MIN THEN TOOK STEPS. STATES HE FEELS FINE AND EVERYTHING IS MOVING CORRECTLY. DAUGHTER ASSISTING TOO. PT GOING TO HER HOUSE TONIGHT TO STAY. HAVE EXPLAINED CATHER AND DRAINAGE BAG TO BOTH. PT STATES HE HAS HAD CATHETER BEFORE.
--- NOTE | 2023-07-05 13:49 | NUR ---
1310 PT HAS OOZY SPOT UP FROM IV SITE WITH SKIN TOP OF SKIN ROLLED APPROX 1.5 CM. RFA. TOOK COBAN OFF L AC FROM LAB DRAW ALSO HAS TOP OF SKIN ROLLED AND OOZY APPROX 1.5 CM. SMALL ALLEVYN DRESSING TO BOTH WOUNDS. PT STATES A WEEK AGO HE HIT AT BUG ON R LEG AND PEELED SKIN WITH JUST HIS HAND. HAS VERY FRAGILE SKIN. DAUGHTER VIEWED EACH AND DRESSINGS PLACED.
--- NOTE | 2023-07-05 19:31 | OR ---
[facility] [address] [place], [place] [address] Signed DATE OF OPERATION: 07/05/2023 SURGEON: Colten Mancia MD PREOPERATIVE DIAGNOSES: 1. Multifocal bladder lesions. 2. Gross hematuria. POSTOPERATIVE DIAGNOSES: 1. Multifocal bladder lesions. 2. Gross hematuria. NAMES OF PROCEDURES: 1. Diagnostic cystoscopy. 2. Urethral dilation using Mcdowell sounds from 16-Swiss to 28-Swiss. 3. Transurethral resection of bladder tumor-medium. ANESTHESIA: General LMA. ESTIMATED BLOOD LOSS: 15 mL. COMPLICATIONS: None. SPECIMENS: Fragments of multiple papillary bladder tumors sent all together in one specimen to the lab for analysis. DRAINS: A 22-Swiss two-way Epps catheter, connected to gravity drainage. INDICATION FOR PROCEDURE: Mr. Wetzel is an 88-year-old gentleman who is well-known to me. He underwent evaluation for microhematuria 1-2 years ago and at that time, nothing of significance was found. He recently presented to me again with intermittent bouts of gross hematuria. He agreed to undergo diagnostic cystoscopy and was found to have multiple subcentimeter papillary lesions present within his bladder, namely two on the dome, one on the left lateral wall of the bladder and one just medial to the left ureteral orifice and one on the right Electronically Signed By: COLTEN MANCIA MD 07/05/231930 PATIENT NAME: KERLINE WETZEL OPERATIVE REPORT DATE OF : 35 REPORT #: [id number] PHYSICIAN: COLTEN MANCIA MD PCP: HILDA SQUIRES MD REPORT IS CONFIDENTIAL AND NOT TO BE RELEASED WITHOUT AUTHORIZATION [facility] [address] [place], [place] [address] Signed lateral wall of the bladder. He has been off his Coumadin now for six days and he presents today to undergo transurethral resection of multiple papillary bladder masses. OPERATIVE FINDINGS: 1. On cystoscopy I can again now appreciate approximately 5 subcentimeter papillary masses. The largest lesion I would say is approximately 1 cm in size and is located on the dome of the bladder. The smallest lesion is on the left lateral wall near the bladder neck. There is also a 3 mm lesion just medial to the left ureteral orifice. There was also diffuse grade 2-3 bladder wall trabeculation noted. 2. Prior to resection, the patient's urethral meatus and fossa navicularis were dilated using Matthew sounds from 16-Swiss to 28-Swiss without difficulty. 3. During the initial part of the resection, I was near the right lateral wall of the bladder and I was resecting one of the papillary tumors when the patient did experience an obturator reflex that did result in a deep laceration to the right lateral wall of the bladder. The laceration went down to the level of perivesical fat. However, it was not noted to be a true perforation. For the remainder of the procedure we were extra careful with inflow of our irrigation and we kept very close tabs on his ins and outs. At the end of the procedure, his ins and outs were equal. 4. All five papillary tumors were resected transurethrally using a bipolar 23-Swiss loop. All of them were resected down to the level of visible detrusor muscle tissue, and then cauterized appropriately for hemostasis. 5. At the end of the procedure, a 22-Swiss two-way Epps catheter was inserted in the patient's bladder and connected to gravity drainage. I chose not to instill any mitomycin today due to the presence of the deep laceration in the right lateral wall of the bladder. DESCRIPTION OF PROCEDURE: After informed consent was obtained, the patient was taken back to the operating room. He was transferred from the [facility] to the operating room table, where general anesthesia was induced. He was placed in the dorsal lithotomy position and his genitalia prepped and draped in a standard sterile fashion. His urethra was dilated from 16-Swiss to 28-Swiss using Matthew sounds without difficulty. Using a 30-degree lens on a 22.5-Swiss introducer, rigid cystoscope was inserted through his urethra into his bladder under direct visualization. Panendoscopic views of bladder then obtained. Please see above findings. This lens was switched out for a 70 degree lens to get a better view of the entire bladder wall. I then removed the rigid cystoscope and replaced it with a resectoscope and a 26-Swiss sheath. A 26-Swiss sheath was placed using a visual obturator. I began my resection on the right lateral wall of the bladder. It was at this time that the patient did experience an adductor reflex on the right side. It was at this point that I instructed Anesthesia to be sure that he receives a paralytic due to this risk of obturator reflex. I thoroughly evaluated the lacerate to the right lateral wall of the bladder and I could appreciate perivesical Electronically Signed By: COLTEN MANCIA MD 07/05/231930 PATIENT NAME: KERLINE WETZEL OPERATIVE REPORT DATE OF : 35 REPORT #: [id number] PHYSICIAN: COLTEN MANCIA MD PCP: HILDA SQUIRES MD REPORT IS CONFIDENTIAL AND NOT TO BE RELEASED WITHOUT AUTHORIZATION [address], [place] [address] Signed fat, but nothing beyond that. I have made the decision to continue with the resection in a very judicious manner. I kept an eye on the irrigation from this point on, along with his I's and O's. Once the patient was properly paralyzed, I continued my resection of the bladder lesions. I have completed the right lateral wall, then followed with the left lateral wall and the lesion just medial to the left ureteral orifice. This was followed then by the two larger lesions on the dome of the bladder. All the lesions were resected completely and then the tumor base was cauterized extensively. I asked anesthesia to administer fluorescein at this time to evaluate efflux from the left ureteral orifice since I did resect near that area. I did appreciate more than adequate efflux from the left ureteral orifice by the end of the procedure. The tumor fragments were then irrigated from the patient's bladder using a Efrem syringe and placed in a specimen cup to be sent to pathology for evaluation. All the while we kept a good eye on the patient's ins and outs and they remained equal. I have made the decision at this time to defer intravesical mitomycin due to the presence of the deep laceration of the right lateral wall of the bladder. Once I was satisfied that all the tumors had been resected and hemostasis had been achieved, I removed the resectoscope. I then inserted a 22-Swiss two-way Epps catheter and connected the catheter to gravity drainage. A rectal examination was performed, which revealed no palpable nodules. The procedure was then terminated. The patient tolerated the procedure well. No complication. He will now be transferred to the postanesthesia care unit in stable condition. DISPOSITION: I discussed the details of today's procedure with the patient's three children and answered all of their questions. They were notified that there is a deep laceration on the right wall of the bladder due to the prior intraoperative obturator reflex. The patient will need to keep a catheter to gravity drainage for two weeks. He will be sent home today with Ultram 50 mg one tablet p.o. q.6h to 8h hours p.r.n. pain along with cephalexin 500 mg one tablet p.o. t.i.d. for a total of 7 days. I told the family that I will contact them with the results of the pathology report and we will decide on the next clinical plan of action at that time. Colten Mancia MD AR/MODL /[id number] Electronically Signed By: COLTEN MANCIA MD 07/05/231930 PATIENT NAME: KERLINE WETZEL OPERATIVE REPORT DATE OF : 35 REPORT #: [id number] PHYSICIAN: COLTEN MANCIA MD PCP: HILDA SQUIRES MD REPORT IS CONFIDENTIAL AND NOT TO BE RELEASED WITHOUT AUTHORIZATION [address] [place] [address] Signed Copies: ~ Electronically Signed By: COLTEN MANCIA MD 08/21/23 1931 PATIENT NAME: RASHARDKERLINE JUSTUS OPERATIVE REPORT DATE OF : 35 REPORT #: [id number] PHYSICIAN: COLTEN MANCIA MD PCP: HILDA SQUIRES MD REPORT IS CONFIDENTIAL AND NOT TO BE RELEASED WITHOUT AUTHORIZATION
[2023-07-06] MEDS ORDERED: CEPHALEXIN500 MG PO (09:34)
[2023-07-06] MEDS ORDERED: TRAMADOL HCL50 MG PO (09:34)
[2023-07-06] MEDS ORDERED: TYLENOL EXTRA500 MG PO (09:51)
--- NOTE | 2023-07-08 16:18 | PATH ---
[facility] [address] [place], [place] [address] Signed SPECIMEN(S): A BLADDER TUMOR SPECIMEN SOURCE: A. BLADDER TUMOR CLINICAL HISTORY: Pre: Bladder tumor. Post: Same, TURBT. FINAL PATHOLOGIC DIAGNOSIS: Bladder tumor, TURBT: - High grade papillary urothelial carcinoma. - Submucosal invasion: Not identified. - Muscularis propria: Present. - Muscularis propria invasion by tumor: Not identified. COMMENT: As part of [facility] Quality Improvement Program, this case was reviewed by another member of our pathology staff. Diagnostic notification to the office of Dr. Mcnamara is initiated by Dr. Nayak and will be recorded separately. JVR:DS:[facility] MICROSCOPIC EXAMINATION: Histologic sections of all submitted blocks are examined by light microscopy. These findings, together with the gross examination, support the pathologic diagnosis. GROSS DESCRIPTION: The specimen, labeled and designated "Liebe, A.," and designated on the requisition "bladder tumor," is received in formalin and consists of multiple fragments of fraire-pink, soft to flocculent tissue (4.5 x 3.5 x 0.5 cm in aggregate). The specimen is submitted entirely in cassettes (A1-A3). AC (under the direct supervision of a pathologist) The Gross Description was prepared using a voice recognition system. The report was reviewed for accuracy; however, sound-alike word errors, addition and/or deletions may occur. If there is any question about this report, please contact Client Services. PERFORMING LABORATORY: Technical component was performed by [facility], Cris Ybarra, PATIENT NAME: KERLINE WETZEL PATHOLOGY DATE OF : 35 REPORT #: [id number] PHYSICIAN: ANDREW JOSEPH PCP: HILDA SQUIRES MD REPORT IS CONFIDENTIAL AND NOT TO BE RELEASED WITHOUT AUTHORIZATION [address], [place] [address] [place] [address] (CLIA# [id number]). Professional interpretation was performed by [facility] Pathology [address] [address] (CLIA#: [id number]). Diagnostician: Saul Nayak MD Pathologist Electronically Signed 07/08/2023 Copies: ~ PATIENT NAME: KERLINE WETZEL PATHOLOGY DATE OF : 35 REPORT #: [id number] PHYSICIAN: ANDREW JOSEPH PCP: HILDA SQUIRES MD REPORT IS CONFIDENTIAL AND NOT TO BE RELEASED WITHOUT AUTHORIZATION
== END 2023-07-05 13:25 | disposition home or self-care (01) ==
LOC: DS 06:47
PROVIDERS: ATTEND Urology
PROC: 0TBB8ZX Excision of Bladder, Via Natural or Artificial Opening Endoscopic, Diagnostic (ICD-10-PCS; principal; 2023-07-05 09:15)
DX: C67.1 Malignant neoplasm of dome of bladder (principal); C67.2 Malignant neoplasm of lateral wall of bladder; C67.6 Malignant neoplasm of ureteric orifice; N40.2 Nodular prostate without lower urinary tract symptoms; I12.9 Hypertensive chronic kidney disease with stage 1 through stage 4 chronic kidney disease, or unspecified chronic kidney disease; N18.30 Chronic kidney disease, stage 3 unspecified; I48.91 Unspecified atrial fibrillation; Z79.01 Long term (current) use of anticoagulants; Z79.899 Other long term (current) drug therapy
CPT/HCPCS: 00912; 36415; 85610; J0330; J0690; J1100; J1160; J1885; J2405; J2704; J2765; J3010; J7121

== ENCOUNTER 2023-07-05 16:26 | Day surgery (SDC) | payer MEDICARE ==
--- NOTE | 2023-07-05 16:39 | NUR ---
1545 pt arrived per wc to tx room. to stretcher. bleeding around penis. large clot at top of drain tube to bullock. call to dr zuniga and to irrigate with sterile water. irrigation 20mls x 4 with long stringy clot. still has oozing blood around penis. abd is a little distended. bladder scan for 53mls. call to dr zuniga and to get ct of abd. 1615 dr zuniga in room and is irrigating vigorously with many clots returned. 1635 imaging here to take pt. terminal operations supervisor called for pt to go back to or. family is with pt.
[2023-07-05 16:57] LABS: HEMATOCRIT 40.5 % (35.0-50.0); HEMOGLOBIN 13.1 g/dL (12.0-18.0); MCH 30.1 (27-36); MCHC 32.3 g/dl (30-36); MCV 93.3 fl (81-99); RBC 4.34 M/ul (4.3-5.7); RDW 14.3 (10.5-15.0)
[2023-07-05 17:06] LABS: ANION GAP 13.3 (7-21); BUN/CREATININE RATIO 16.66 (6.0-28.6); CALCIUM 8.8 mg/dL (8.5-10.1); CREATININE, SERUM 2.28 mg/dL (0.70-1.30); POTASSIUM 4.3 mmol/L (3.5-5.1)
--- NOTE | 2023-07-05 17:25 | NUR ---
1710 DR MANCIA ORDERED TO CONT HAND IRRIGATION OF BLADDER TO KEEP PT FROM CLOTTING OF TILL HE GOES TO OR. THIS DONE WITH MANY CLOTS DURING IRRIGATIONS.
--- NOTE | 2023-07-05 19:04 | NUR ---
CONNECTED WITH FAMILY IN HALLWAY. EXERCISED MINISTRY OF PRESENCE FAMILY TALKED OF SHARED EXPERIENCES AND THEOLOGIES. FAMILY REQUESTED PRAYER. PRAYED FOR SUCCESSFUL PROCEDURE AND PEDROZA RETURN TO HEALTH.
--- NOTE | 2023-07-05 19:23 | NUR ---
07/05/231922 Abena Sun 190- PT ARRIVED TO PACU, SUPINE POSITION. [address], DRAINING RED URINE. ALL MONITORS IN PLACE, OPA IN PLACE, 6L O2 PER MASK. PT NON AROUSAL AT THIS TIME. 1907- CBI TO CATHETER STARTED AT SLOW DRIP FOR RED URINE. 1913- NOTIFIED DR MANCIA OF NEED FOR CBI, WILL COME EXAMINE PT IN PACU. PT REMAINS NON AROUSABLE AT THIS TIME. URINE COLOR TO YELLOW WITH HAZY PINK. 1919-PT HAS SMALL SKIN TEAR WHERE TAPE SECURED IV TUBING JUST BELOW THE IV SITE IN THE RAC. MINIMAL BLEEDING, ALLEVYN DRESSING PLACED. AREA SMALLER THAN A DIME, DR MANCIA NOTIFIED.
[2023-07-05 19:50] VITALS: BP 150/79
--- NOTE | 2023-07-05 19:50 | NUR ---
PT TO FLOOR WITH PACU NURSES VIA BED. PT ALERT AND ORIENTED. BEDSIDE REPORT RECEIVED. CBI INFUSING AT SLOW DRIP. PIÑA PATENT WITH PINK TINGED URINE IN TUBING. NO CLOTS NOTED. SCANT AMOUNT BLOODY DRAINAGE FROM PIÑA INSERTION SITE. CATH CARE DONE. VS WNL. SCD'S IN PLACE. ICE WATER PROVIDED. FAMILY AT BEDSIDE. DAUGHTER TO TAKE PT WALLET HOME. CLOTHING IN CLOSET. PT HAS HEARING AIDS AND DENTURES IN PLACE. CPOX IN PLACE. ASSESSMENT COMPLETE. CPOX IN PLACE. PT ORIENTED TO ROOM AND NURSE CALL LIGHT. FAMILY AT BEDSIDE. NO FURTHER NEEDS. BED ALARM FOR SAFETY. CALL LIGHT IN REACH.
[2023-07-05 20:50] VITALS: BP 157/62
--- NOTE | 2023-07-05 20:50 | NUR ---
POST OP VS WNL. PT DENIES PAIN. CBI INFUSING AT SLOW DRIP. URINE IN TUBING CLEAR AT THIS TIME. NO CLOTS NOTED. PT DENIES NEEDS. CALL LIGHT IN REACH. BED ALARM FOR SAFETY.
[2023-07-05 22:01] VITALS: BP 149/74
--- NOTE | 2023-07-05 22:09 | NUR ---
PT RESTING WITH EYES CLOSED. AWAKENS EASILY. POST OP VS WNL. SCHEDULED MEDS ADMIN PER EMAR. PT DENIES PAIN OR NAUSEA. URINE IN TUBING LIGHT RED. CBI TURNED UP SMALL AMOUNT. NO CLOTS NOTED. PIÑA DRAINING WNL. PT DENIES FURTHER NEEDS. CALL LIGHT IN REACH.
[2023-07-05 23:00] VITALS: BP 138/60
--- NOTE | 2023-07-05 23:17 | NUR ---
POST OP VS COMPLETE. URINE IN TUBING LIGHT PINK. NO CLOTS NOTED. CBI INFUSING AT SLOW DRIP. PT REPORTS PRESSURE LIKE HE NEEDS TO VOID. BLADDER SCAN DETECTED NO URINE AT THIS TIME. PT EDUCATION PROVIDED. NO FURTHER NEEDS. CALL LIGHT IN REACH.
--- NOTE | 2023-07-06 00:49 | NUR ---
PT RESTING IN BED WITH EYES CLOSED. RESPIRATIONS EVEN. SpO2 96% ON RA. HR 80'S. URINE IN TUBING LIGHT PINK. CBI AT SLOW DRIP INFUSION.
[2023-07-06 02:12] VITALS: BP 122/58
--- NOTE | 2023-07-06 02:20 | NUR ---
PT RESTING WITH EYES CLOSED. AWAKENS EASILY. VS AND I&O OBTAINED. PT DENIES PAIN OR NAUSEA. URINE IN TUBING CLEAR YELLOW. CBI CLAMPED AT THIS TIME. PT DENIES NEEDS. CALL LIGHT IN REACH.
--- NOTE | 2023-07-06 03:32 | NUR ---
IV PUMP ALARMING. NEW BAG IVF INFUSING PER ORDER. URINE IN PIÑA TUBING CLEAR YELLOW. CBI REMAINS CLAMPED.
[2023-07-06 06:23] VITALS: BP 146/68
--- NOTE | 2023-07-06 06:23 | NUR ---
PT AWAKE VISITING SON AT BEDSIDE. DENIES PAIN OR NAUSEA. MORNING SNACK PROVIDED. PIÑA PATENT WITH 250 ML YELLOW URINE. CBI REMAINS CLAMPED. NO FURTHER NEEDS. CALL [facility] IN REACH.
--- NOTE | 2023-07-06 07:30 | NUR ---
Report received from Rosie GARDNER. Pt sitting up in bed, A+O, RR even and unlabored. No needs reported at this time. Will continue plan of care. Call light in reach.
--- NOTE | 2023-07-06 08:30 | NUR ---
Spoke with Dr Mcnamara about patient DC plan. Rounded on patient, updated on POC, pt agreeable. Spoke with pharmacy regarding pt ABX this morning.
--- NOTE | 2023-07-06 09:05 | NUR ---
IV ABX infusing WNL. Pt and family educated regarding bullock catheter maintenance and use.
[2023-07-06 09:20] VITALS: BP 118/45
--- NOTE | 2023-07-06 09:27 | NUR ---
DAUGHTERS IN ROOM. PT GETTING READY TO GO HOME. EXERCISED MINISTRY OF PRESENCE TALKED OF SHARED CONNECTIONS AND HOPE FOR NEAR FUTURE. CONSENTED TO PRAYER. PRAYED FOR PEDROZA RECOVERY AND PATIENCE WITH PROCESS.
[2023-07-06] MEDS ORDERED: CEPHALEXIN500 MG PO (09:34)
[2023-07-06] MEDS ORDERED: TRAMADOL HCL50 MG PO (09:34)
[2023-07-06] MEDS ORDERED: TYLENOL EXTRA500 MG PO (09:51)
--- NOTE | 2023-07-06 09:51 | NUR ---
MED REC COMPLETE
--- NOTE | 2023-07-06 10:53 | NUR ---
Extensive discharge information given to patient and his two daughters. Epps care repeated with education, pt and family state understanding. IV removed WNL. MILK ROUTE DELIVERER in room to assist patient dressing. Dr Mcnamara called to verify warfarin use, clarified with patient and family. No further questions.
--- NOTE | 2023-07-06 10:57 | NUR ---
SPOKE TO PATIENT ABOUT THE DISCHARGE PLAN. PATIENT WILL BE GOING HOME TO HIS HOUSE. PT.HAS FRIENDS AND FAMILY THAT ARE AVAILABLE NEEDED. PATIENT HAS A HANDICAP READY HOUSE. PATIENT CAN AFFORD HOUSING AND FOOD. PATIENT USES A WALKER AND WHEELCHAIR NEEDED. PATIENT WILL DRIVE WHEN MEDICALLY CLEARED. PATIENT'S DEMOGRAPHICS ARE CORRECT IN THE MEDICAL RECORD. PATIENT NO DC NEEDS.PATIENT WILL NOTIFIED CM IF NEEDS CHANGE.
--- NOTE | 2023-07-06 18:27 | OR ---
[facility] [address] [facility] [place], [place] [address] Signed DATE OF OPERATION: 07/05/2023 SURGEON: Colten Mancia MD PREOPERATIVE DIAGNOSES: 1. Gross hematuria, status post transurethral resection of bladder tumor-medium. 2. 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 3. Recent iatrogenic partial perforation of the right lateral wall of the bladder. POSTOPERATIVE DIAGNOSES: 1. Gross hematuria, status post transurethral resection of bladder tumor-medium. 2. 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 3. Recent iatrogenic partial perforation of the right lateral wall of the bladder. 4. Persistent hemorrhagic bleed coming from the prior resection site on the dome of the bladder. 5. No evidence of intraperitoneal bladder rupture. NAMES OF PROCEDURES: 1. Diagnostic cystoscopy with blood clot evacuation. 2. Transurethral cauterization of persistent hemorrhage, status post transurethral resection of bladder tumor. 3. Placement of a 22-Romanian three-way Epps catheter, connected to gravity drainage. ANESTHESIA: General. ESTIMATED BLOOD LOSS: Minimal. COMPLICATIONS: None. SPECIMENS: None. DRAINS: A 22-Romanian three-way Epps catheter, connected to gravity drainage. INDICATION FOR PROCEDURE: Mr. Wetzel is a very pleasant 88-year-old gentleman who underwent transurethral resection Electronically Signed By: COLTEN MANCIA MD 07/06/23 1827 PATIENT NAME: KERLINE WETZEL OPERATIVE REPORT DATE OF : 35 REPORT #: [id number] PHYSICIAN: COLTEN MANCIA MD PCP: HILDA SQUIRES MD REPORT IS CONFIDENTIAL AND NOT TO BE RELEASED WITHOUT AUTHORIZATION [facility] [address] [place], [place] [address] Signed of multiple bladder tumors earlier this morning. The procedure was complicated by iatrogenic injury to the right lateral wall of the bladder due to an obturator reflex. The procedure was continued very carefully and I was able to resect all five papillary tumors from the bladder wall. By the end of the procedure, there was no evidence of any extravasation of fluid outside the bladder. The in's and out's were equal at the end of the case and the patient's abdominal exam remained soft throughout the entire surgery. After he awoke in recovery, he was sent home with a catheter to gravity drainage. A couple of hours later, the patient's family brought the patient back as he had developed rather severe gross hematuria and his catheter was no longer draining properly. A nurse attempted to irrigate the bladder and she did notice a good deal of large blood clots coming from the catheter. The patient denied any other symptoms and overall felt fine. However, examination of his abdomen revealed new onset suprapubic distention that was not present immediately postoperatively. The patient underwent a stat CT scan, which revealed extraperitoneal extravasation of fluid from the bladder, which is expected. More importantly, there was no evidence of any intraperitoneal fluid collection. Therefore, no evidence of any intraperitoneal bladder rupture. The patient will now be taken to the OR to undergo blood clot evacuation along with cauterization of this source of the bleeding. OPERATIVE FINDINGS: 1. On cystoscopy, there were quite a few large well organized blood clots present within the bladder. I was able to manually irrigate all of the clots from the patient's bladder after about 45 minutes of intermittent manual irrigation using a Efrem syringe. 2. Once the bladder was clear of all blood clots, I closely inspected the entire bladder wall. I was able to appreciate the prior deep laceration to the right lateral wall, it was not bleeding and actually had an adequate clot present within the defect. I decided to leave this area alone. 3. I did appreciate an active hemorrhage coming from the dome of the bladder. This was coming from a prior area of tumor resection. I cauterized this area adequately and ultimately I was able to achieve hemostasis in this area. I looked throughout the remainder of the bladder wall and did not appreciate any other active sources of bleeding. 4. At the end of the procedure, a 22-Romanian three-way Epps catheter was inserted into the patient's bladder and connected to gravity drainage. The CBI port was capped to be used as needed. DESCRIPTION OF PROCEDURE: After informed consent was obtained, the patient was taken back to the operating room. He was transferred from the [facility] to the operating room table, where general anesthesia was induced. He was placed in the dorsal lithotomy position and his genitalia were prepped and draped in standard sterile fashion. His indwelling 22-Romanian two-way Epps catheter was removed. His genitalia were then prepped. Using a 30-degree lens on a Electronically Signed By: COLTEN MANCIA MD 07/06/23 1827 PATIENT NAME: KERLINE WETZEL OPERATIVE REPORT DATE OF : 35 REPORT #: [id number] PHYSICIAN: COLTEN MANCIA MD PCP: HILDA SQUIRES MD REPORT IS CONFIDENTIAL AND NOT TO BE RELEASED WITHOUT AUTHORIZATION [address] [address] Signed 22.5-Romanian introducer, rigid cystoscope was inserted through his urethra into his bladder under direct visualization. Panendoscopic views of bladder then obtained. Please see above findings. I then switched the cystoscope out for a resectoscope with a 26-Romanian sheath. I began to manually irrigate the bladder with a Efrem syringe and I did receive a good deal of well organized blood clots. I had to cut some of the blood clots into smaller pieces to allow for easier extraction from the bladder. After about 45 minutes, I was successful in having extracted all of the blood clots from the patient's bladder. It was at this time that I was able to inspect the entire wall of the bladder. Please see above findings. The only significant hemorrhage that I could appreciate was coming from the dome of the bladder, from a prior resection site. I thoroughly irrigated this area using a bipolar loop and the bleeding stopped almost immediately. I then stayed within the patient's bladder for another 5 minutes with no irrigation in order to appreciate any additional active hemorrhaging. I was satisfied this time that there was no additional bleeding within the bladder. I then removed the resectoscope and inserted a 22-Romanian three-way Epps catheter into the patient's bladder. I filled the balloon with 20 mL of sterile water. The CBI port was capped and the catheter was connected to gravity drainage. The procedure was then terminated. The patient tolerated the procedure well without any complication. He will now be transferred to the postanesthesia care unit in stable condition. DISPOSITION: I discussed the details of today's procedure with the patient's kids and answered all their questions. They were notified that he does not have an intraperitoneal bladder rupture and that all the small amount of fluid present within the wall of his bladder and the generalized pelvic edema will heal with time. He will need to continue to have his catheter to gravity drainage for at least the next two weeks to allow for proper healing of his bladder wall. He is already taking his oral antibiotics that he started earlier today. He will stay the night tonight so that nursing staff can keep a close eye on his Epps catheter. He will receive a dose of Rocephin tomorrow morning before he is discharged to home with Epps catheter to gravity drainage. He will be scheduled to have a voiding trial in at least two weeks once his bladder has healed completely. MD MERARI Rodriguez/MODL /[id number] Electronically Signed By: COLTEN MANCIA MD 07/06/23 1827 PATIENT NAME: KERLINE WETZEL OPERATIVE REPORT DATE OF : 35 REPORT #: [id number] PHYSICIAN: COLTEN MANCIA MD PCP: HILDA SQUIRES MD REPORT IS CONFIDENTIAL AND NOT TO BE RELEASED WITHOUT AUTHORIZATION [address] [place] [address] Signed Copies: ~ Electronically Signed By: COLTEN MANCIA MD 07/06/23 1827 PATIENT NAME: KERLINE WETZEL OPERATIVE REPORT DATE OF : 35 REPORT #: [id number] PHYSICIAN: COLTEN MANCIA MD PCP: HILDA SQUIRES MD REPORT IS CONFIDENTIAL AND NOT TO BE RELEASED WITHOUT AUTHORIZATION
== END 2023-07-06 11:00 | disposition home or self-care (01) ==
LOC: OPV-DS 16:26 → MS 16:26 → OPV-DS 19:29 → MS 07-06 11:00
PROVIDERS: ATTEND Urology
PROC: 0TCB8ZZ Extirpation of Matter from Bladder, Via Natural or Artificial Opening Endoscopic (ICD-10-PCS; principal; 2023-07-05 17:00)
DX: R31.0 Gross hematuria (principal); N17.9 Acute kidney failure, unspecified; C67.9 Malignant neoplasm of bladder, unspecified; N18.9 Chronic kidney disease, unspecified; U07.1 COVID-19; M62.82 Rhabdomyolysis
CPT/HCPCS: 00910; 36415; 74176; 80048; 85027; J0330; J0696; J3010; J7121

== ENCOUNTER 2024-07-20 13:20 | Emergency (ER) | payer MEDICARE ==
[~2024-07-20] VITALS: Ht 190.5 cm; Wt 76.0 kg
[~2024-07-20 13:20] MED LIST changes: +FISH OIL 1,001000 MG PO; +TRAMADOL HCL50 MG PO; +TYLENOL EXTRA500 MG PO
[2024-07-20 15:00] LABS: BASOPHILS 0.3 % (0-2); EOSINOPHILS 4.1 % (0-6); HEMATOCRIT 45.4 % (35.0-50.0); HEMOGLOBIN 15.1 g/dL (12.0-18.0); LYMPHOCYTES 7.4 % (24-44); MCHC 33.2 g/dl (30-36); MCV 90.4 fl (81-99); MONOCYTES 6.1 % (0-12); NEUTROPHILS 82.1 % (39-80); PLATELET COUNT 93 K/uL (140-440); RBC 5.02 M/ul (4.3-5.7); RDW 14.7 (10.5-15.0)
[2024-07-20] MEDS ORDERED: ALLOPURINOL100 MG PO (15:13)
[2024-07-20 15:18] LABS: ALBUMIN 3.5 g/dL (3.4-5.0); ALBUMIN/GLOBULIN RATIO 0.74 (1.1-2.4); ANION GAP 15.9 (7-21); BUN/CREATININE RATIO 13.92 (6.0-28.6); CALCIUM 9.3 mg/dL (8.5-10.1); CREATININE, SERUM 3.16 mg/dL (0.70-1.30); MAGNESIUM 1.9 mg/dL (1.8-2.4); POTASSIUM 3.9 mmol/L (3.5-5.1); PROTEIN, TOTAL 8.2 g/dL (6.4-8.2)
[2024-07-20] MEDS ORDERED: SODIUM CHLORIDE 0.9% 1,000 ML IV ONE (15:30)
[2024-07-20 15:45] LABS: INR 3.11 (0.80-1.30)
[2024-07-20 16:58] LABS: BILIRUBIN, URINE NEGATIVE (negative); BLOOD/HGB, URINE LARGE (Negative); KETONE, URINE NEGATIVE (Negative); LEUK ESTERASE, URINE NEGATIVE (negative); NITRITE, URINE NEGATIVE (negative); PH, URINE 5.5 (5-7)
[2024-07-20 17:08] LABS: BACTERIA, URINE RARE /hpf (negative); CRYSTALS, URINE NONE SEEN (0-1+); EPITHELIAL CELLS, URINE NONE SEEN /lpf (0-1+)
[2024-07-20 17:09] LABS: CASTS, URINE GRANULAR 3+ \\lpf; COLLECTION TYPE, URINE CLEAN CATCH; REFLEX CULTURE, URINE No (No)
[2024-07-20 19:48] VITALS: BP 142/75
--- NOTE | 2024-07-21 16:22 | EKG ---
[facility] [address] [place] [address] Signed Atrial fibrillation Low voltage QRS Possible Inferior infarct (cited on or before 01-JUL-2023) Cannot rule out Anteroseptal infarct (cited on or before 02-MAR-2022) Abnormal ECG When compared with ECG of 13-JAN-2024 18:11, Nonspecific T wave abnormality now evident in Inferior leads T wave inversion now evident in Lateral leads Confirmed by Ananya Kay MD ([id number]) on 07/21/2024 4:22:33 PM Electronically Signed By: ANANYA KAY MD 07/21/24 1622 PATIENT NAME: KERLINE WETZEL Electrocardiogram DATE OF : 35 PHYSICIAN: ANANYA KAY MD REPORT #: [id number] REPORT IS CONFIDENTIAL AND NOT TO BE RELEASED WITHOUT AUTHORIZATION
== END 2024-07-20 19:47 | disposition home or self-care (01) ==
LOC: ED 13:20
PROVIDERS: Emergency Medicine
DX: R53.1 Weakness (principal); E86.0 Dehydration; I10 Essential (primary) hypertension; I48.91 Unspecified atrial fibrillation; Z79.01 Long term (current) use of anticoagulants; Z79.899 Other long term (current) drug therapy
CPT/HCPCS: 36415; 71045; 80053; 81001; 82553; 83735; 84484; 85025; 85610; 93005; 93010; 99284-25; J7030; U0002

== ENCOUNTER 2024-07-22 22:20 | Emergency (ER) | payer MEDICARE ==
[~2024-07-22] VITALS: Ht 190.5 cm; Wt 75.4 kg
[~2024-07-22 22:20] MED LIST changes: +ALLOPURINOL100 MG PO
--- OUTSIDE RECORDS SUMMARY | 2024-07-22 22:26 | XMS ---
PreManage Notification: KERLINE WETZEL Security Punch Card Operator Events No recent Security Events currently on file CRITERIA MET - [facility] - 2 Visits in 30 Days CARE PROVIDERS [facility] Internal Medicine Current PHONE: Unknown Noy has no Care Guidelines for this patient. EChloe VISIT COUNT (12 MO.) 3 [facility] TOTAL 3 NOTE: Visits indicate total known visits. ED/UCC VISIT TRACKING (12 MO.) 07/22/2024 22:20 [facility] TYPE: Emergency COMPLAINT: - WEAKNESS/FEVER 07/20/2024 13:21 [facility] TYPE: Emergency COMPLAINT: - DIZZINESSR DIAGNOSES: - Dehydration - Dizziness and giddiness - Essential (primary) hypertension - MCFP (current) use of anticoagulants - Other mcfp (current) drug therapy - Unspecified atrial fibrillation - Weakness 01/13/2024 17:09 [facility] TYPE: Emergency COMPLAINT: - FALL DIAGNOSES: - Chronic kidney disease, unspecified - Dehydration - Fall on same level, unspecified, initial encounter - Hypertensive chronic kidney disease with stage 1 through stage 4 chronic kidney disease, or unspecified chronic kidney disease - Other long term care phlebotomist (current) drug therapy - Syncope and collapse - Unspecified atrial fibrillation INPATIENT VISIT TRACKING (12 MO.) No inpatient visits to display in this time frame [id number]
[2024-07-22] MEDS ORDERED: LACTATED RINGER'S 1,000 ML IV ONE (23:30)
[2024-07-23 00:05] LABS: ALBUMIN 2.9 g/dL (3.4-5.0); ALBUMIN/GLOBULIN RATIO 0.71 (1.1-2.4); ALCOHOL, MEDICAL <3 ng/dL (<3); ALKALINE PHOSPHATASE 96 U/L (46-116); ALT (SGPT) 12 U/L (14-59); ANION GAP 15.7 (7-21); AST (SGOT) 13 U/L (15-37); BILIRUBIN, TOTAL 1.1 ng/dL (0.2-1.0); BUN/CREATININE RATIO 17.59 (6.0-28.6); CALCIUM 8.7 mg/dL (8.5-10.1); CARBON DIOXIDE 23 mmol/L (21-32); CHLORIDE 99 mmol/L (98-107); CREATININE, SERUM 3.41 mg/dL (0.70-1.30); GLOMERULAR FILTRATION RATE,EST 17 mL/min (>60); POTASSIUM 3.7 mmol/L (3.5-5.1); UREA NITROGEN 60 mg/dL (7-18)
[2024-07-23 00:14] LABS: BASOPHILS 0.7 % (0-2); HEMATOCRIT 38.8 % (35.0-50.0); HEMOGLOBIN 13.1 g/dL (12.0-18.0); LYMPHOCYTES 9.3 % (24-44); MCH 30.2 (27-36); MCHC 33.8 g/dl (30-36); MCV 89.3 fl (81-99); MONOCYTES 8.2 % (0-12); NEUTROPHILS 71.8 % (39-80); PLATELET COUNT 111 K/uL (140-440); RBC 4.34 M/ul (4.3-5.7); RDW 14.4 (10.5-15.0)
[2024-07-23 00:19] LABS: INFLUENZA B NAA NEGATIVE (NEGATIVE); RESPIRATORY SYNCYTIAL VIR NAA NEGATIVE (NEGATIVE)
[2024-07-23] MEDS ORDERED: LACTATED RINGER'S 1,000 ML IV ONE (01:00)
[2024-07-23 01:12] LABS: BILIRUBIN, URINE NEGATIVE (negative); BLOOD/HGB, URINE MODERATE (Negative); KETONE, URINE NEGATIVE (Negative); LEUK ESTERASE, URINE NEGATIVE (negative); NITRITE, URINE NEGATIVE (negative); PH, URINE 5.5 (5-7)
[2024-07-23 01:26] LABS: COLLECTION TYPE, URINE CLEAN CATCH; CRYSTALS, URINE NONE SEEN (0-1+)
[2024-07-23 01:27] LABS: BACTERIA, URINE 2+ /hpf (negative); REFLEX CULTURE, URINE Yes (No)
[2024-07-23 01:28] LABS: EPITHELIAL CELLS, URINE SQUAMOUS 1+ /lpf (0-1+)
[2024-07-23] MEDS ORDERED: CEPHALEXIN500 MG PO (01:43)
[2024-07-23] MEDS ORDERED: CEFTRIAXONE/SODIUM CHLORIDE 2 GM/100 ML PIGGYBACK IV ONE (01:45)
[2024-07-23 03:05] VITALS: BP 130/58
[2024-07-24] MEDS ORDERED: TORSEMIDE20 MG PO (11:25)
== END 2024-07-23 03:05 | disposition home or self-care (01) ==
LOC: ED 22:20
PROVIDERS: Internal Medicine
DX: N39.0 Urinary tract infection, site not specified (principal); E86.0 Dehydration; I12.9 Hypertensive chronic kidney disease with stage 1 through stage 4 chronic kidney disease, or unspecified chronic kidney disease; N18.4 Chronic kidney disease, stage 4 (severe); I48.91 Unspecified atrial fibrillation; Z79.899 Other long term (current) drug therapy; Z79.01 Long term (current) use of anticoagulants
CPT/HCPCS: 36415; 51701; 51798; 71045; 80053; 81001; 82553; 83880; 84484; 85025; 87040; 87088; 87502; 99285-25; G0480; J0696; J7121; U0002

== ENCOUNTER 2024-07-24 08:29 | Inpatient (IN) | payer MEDICARE ==
[~2024-07-24] VITALS: Ht 190.5 cm; Wt 80.8 kg
[2024-07-24] MEDS ORDERED: LACTATED RINGER'S 1,000 ML IV PRN (08:30)
--- OUTSIDE RECORDS SUMMARY | 2024-07-24 08:35 | XMS ---
PreManage Notification: KERLINE WETZEL Security Stitch Rubber Events No recent Security Events currently on file CRITERIA MET - [facility] - 2 Visits in 30 Days CARE PROVIDERS [facility] Internal Medicine Current PHONE: Unknown Noy has no Care Guidelines for this patient. EChloe VISIT COUNT (12 MO.) 4 [facility] TOTAL 4 NOTE: Visits indicate total known visits. ED/UCC VISIT TRACKING (12 MO.) 07/24/2024 08:29 [facility] TYPE: Emergency COMPLAINT: - FALL 07/22/2024 22:[address] [facility] [place] TYPE: Emergency COMPLAINT: - WEAKNESS/FEVER 07/20/2024 13:21 [facility] TYPE: Emergency COMPLAINT: - DIZZINESSR DIAGNOSES: - Dehydration - Dizziness and giddiness - Essential (primary) hypertension - termite technician (current) use of anticoagulants - Other tank terminal gauger (current) drug therapy - Unspecified atrial fibrillation - Weakness 01/13/2024 17:09 [facility] TYPE: Emergency COMPLAINT: - FALL DIAGNOSES: - Chronic kidney disease, unspecified - Dehydration - Fall on same level, unspecified, initial encounter - Hypertensive chronic kidney disease with stage 1 through stage 4 chronic kidney disease, or unspecified chronic kidney disease - Other tank terminal gauger (current) drug therapy - Syncope and collapse - Unspecified atrial fibrillation INPATIENT VISIT TRACKING (12 MO.) No inpatient visits to display in this time frame [id number]
[2024-07-24 08:44] LABS: BASOPHILS 0.7 % (0-2); EOSINOPHILS 5.5 % (0-6); HEMATOCRIT 38.1 % (35.0-50.0); HEMOGLOBIN 12.6 g/dL (12.0-18.0); LYMPHOCYTES 8.5 % (24-44); MCH 29.6 (27-36); MCV 89.6 fl (81-99); NEUTROPHILS 76.3 % (39-80); PLATELET COUNT 167 K/uL (140-440); RBC 4.25 M/ul (4.3-5.7); RDW 14.7 (10.5-15.0)
[2024-07-24 08:54] LABS: INR 4.03 (0.80-1.30); PROTIME 38.1 Sec (11.2-14.2)
[2024-07-24 08:57] LABS: ALBUMIN 2.5 g/dL (3.4-5.0); ALBUMIN/GLOBULIN RATIO 0.58 (1.1-2.4); ANION GAP 16.5 (7-21); BILIRUBIN, TOTAL 0.9 ng/dL (0.2-1.0); BUN/CREATININE RATIO 21.42 (6.0-28.6); CALCIUM 8.7 mg/dL (8.5-10.1); CREATININE, SERUM 3.08 mg/dL (0.70-1.30); POTASSIUM 3.5 mmol/L (3.5-5.1); PROTEIN, TOTAL 6.8 g/dL (6.4-8.2)
[2024-07-24] MEDS ORDERED: LIDOCAINE 2% W/ EPI 1:200,000 20 ML SDV SUB-Q ONE (09:45)
[2024-07-24] MEDS ORDERED: CEFTRIAXONE/SODIUM CHLORIDE 2 GM/100 ML PIGGYBACK IV ONE (10:00)
[2024-07-24] MEDS ORDERED: SODIUM CHLORIDE 0.9% 500 ML IV PRN (10:00)
[2024-07-24] MEDS ORDERED: TORSEMIDE20 MG PO (11:25)
[2024-07-24 11:51] LABS: TSH, 3RD GENERATION 1.117 uIU/mL (0.358-3.740)
[2024-07-24] MEDS ORDERED: PHARMACY RENAL DOSE ADJUSTMENT 1 DOSE MISC PO SCH (12:00)
[2024-07-24 12:18] LABS: BILIRUBIN, URINE NEGATIVE (negative); BLOOD/HGB, URINE SMALL (Negative); KETONE, URINE NEGATIVE (Negative); LEUK ESTERASE, URINE NEGATIVE (negative); NITRITE, URINE NEGATIVE (negative); PH, URINE 5.5 (5-7)
[2024-07-24 12:25] LABS: BACTERIA, URINE RARE /hpf (negative); CASTS, URINE GRANULAR 2+ \\lpf; COLLECTION TYPE, URINE CLEAN CATCH; CRYSTALS, URINE NONE SEEN (0-1+); EPITHELIAL CELLS, URINE SQUAMOUS 1+ /lpf (0-1+); REFLEX CULTURE, URINE No (No); WHITE BLOOD CELLS, URINE 0-1 /HPF (0-5)
--- NOTE | 2024-07-24 12:31 | EKG ---
[facility] [address] [place] [address] Signed Atrial fibrillation with premature ventricular or aberrantly conducted complexes Low voltage QRS Cannot rule out Anteroseptal infarct (cited on or before 02-MAR-2022) ST \T\ T wave abnormality, consider lateral ischemia Abnormal ECG When compared with ECG of 20-JUL-2024 14:56, Borderline criteria for Inferior infarct are no longer present Confirmed by Ananya Kay MD ([id number]) on 07/24/2024 12:30:58 PM Electronically Signed By: ANANYA KAY MD 07/24/24 1231 PATIENT NAME: KERLINE WETZEL Electrocardiogram DATE OF : 35 PHYSICIAN: ANANYA KAY MD REPORT #: [id number] REPORT IS CONFIDENTIAL AND NOT TO BE RELEASED WITHOUT AUTHORIZATION
--- NOTE | 2024-07-24 13:43 | NUR ---
This RN arrived in ED 6 at 1330 hours where RN Nay Call was finishing dressing the pt's right arm. peer financial counselor in room as well as family. Pt is A&O x4. 2 RN skin assessment done at this time. Noted a small, dime sized decubiti on the pt's coccyx, possibly stage 1, noted redness just below that, an area about 6 inches long and 4 inches wide with the top third of it blanchable. Bruising noted to the right hip. Pt has dry skin on his feet and his toenails are long and thick, curling on the ends. Pt was transferred from ER stretcher to MRI table in room using hover mat by this RN and peer financial counselor. plastic surgery technician transferred pt to MRI. Will transfer pt to room 110 after the MRI is complete. Pt's family to follow.
[2024-07-24 14:14] VITALS: BP 129/60
--- NOTE | 2024-07-24 14:20 | NUR ---
CALL FROM RADIOLOGY CONFIRMING RIGHT CEREBELLAR STROKE, INFORMATION PASSED TO DR. MONTGOMERY.
--- NOTE | 2024-07-24 14:29 | NUR ---
PATIENT ARRIVED TO MED SURG. TELE #4 IS ON. PATIENT TRANSFERRED TO BED FROM MRI TABLE VIA TRANSFER SHEET. PATIENT VITALS ARE STABLE. PATIENT ANSWERS QUESTIONS WELL, DOES FALL ASLEEP EASILY. BED ALARM IS ON
[2024-07-24] MEDS ORDERED: AMLODIPINE BESYL5 MG PO (14:54)
--- NOTE | 2024-07-24 17:19 | NUR ---
Pt's family brought his compression socks from home. Applied compression socks to bilateral lower extremities. Pt states that he wears them at home daily and usually puts them on, himself, but hasn't been able to wear them for the last couple of days. Pt lives home alone and his son states that his father will be very upset when he understands that he can't be alone at home anymore d/t his increasing weakness. Pt's son also expressed concern about having the hospitalist come and speak with them soon so they can have questions answered. They have concerns about imaging and would like to address their concerns with the hospitalist. PC to Dr. Zhang and advised him of their request. He plans to come to speak with them.
--- NOTE | 2024-07-24 17:50 | NUR ---
Dr. Zhang in with pt and pt's family
[2024-07-24 18:28] VITALS: BP 137/57
[2024-07-24] MEDS ORDERED: SODIUM CHLORIDE 0.9% 1,000 ML IV SCH (19:00)
--- NOTE | 2024-07-24 20:04 | NUR ---
REPORT RECEIVED FROM FAITH GARDNER. pt RESTING IN THE BED. pt DENIES ANY NEEDS AT THIS TIME. BOARD UPDATED. CALL LIGHT WITHIN REACH.
[2024-07-24 20:42] VITALS: BP 136/50
[2024-07-24 20:44] VITALS: BP 136/50
--- NOTE | 2024-07-24 20:45 | NUR ---
ASSESSMENT AND VITAL SIGNS DONE. pt RESTING IN THE BED. pt A&O X4. pt WANTED TO SIT UP TO EAT HIS DESSERT. SAT pt BED UP FOR pt TO EAT. pt DENIES ANY OTHER NEEDS AT THIS TIME. CALL LIGHT WITHIN REACH.
[2024-07-24] MEDS ORDERED: MELATONIN 3 MG TAB PO PRN (21:00)
--- NOTE | 2024-07-24 23:09 | NUR ---
pt RESTING IN THE BED WITH EYES CLOSED. RR EVEN AND UNLABORED. CALL LIGHT WITHIN REACH.
[2024-07-25] VITALS (11 sets, daily range): BP systolic 126–152; BP diastolic 47–65
--- NOTE | 2024-07-25 01:40 | NUR ---
VITAL SIGNS DONE. pt USED THE URINAL. pt RESPOSITIONED WITH PILLOW UNDER BOTH HIPS. pt DENIES ANY OTHER NEEDS AT THIS TIME. CALL LIGHT WITHIN REACH.
--- NOTE | 2024-07-25 04:00 | NUR ---
pt RESTING IN THE BED WITH EYES CLOSED. RR EVEN AND UNLABORED. CALL LIGHT WITHIN REACH.
[2024-07-25 05:24] LABS: BASOPHILS 0.8 % (0-2); EOSINOPHILS 13.3 % (0-6); HEMATOCRIT 32.3 % (35.0-50.0); HEMOGLOBIN 10.9 g/dL (12.0-18.0); LYMPHOCYTES 16.4 % (24-44); MCH 30.3 (27-36); MCHC 33.7 g/dl (30-36); MONOCYTES 5.6 % (0-12); NEUTROPHILS 63.9 % (39-80); PLATELET COUNT 201 K/uL (140-440); RBC 3.59 M/ul (4.3-5.7); RDW 14.8 (10.5-15.0)
[2024-07-25 05:40] LABS: ANION GAP 11.5 (7-21); BUN/CREATININE RATIO 22.76 (6.0-28.6); CALCIUM 8.3 mg/dL (8.5-10.1); CHOLESTEROL/HDL RATIO 4.2; CREATININE, SERUM 2.46 mg/dL (0.70-1.30); MAGNESIUM 1.8 mg/dL (1.8-2.4); POTASSIUM 3.5 mmol/L (3.5-5.1)
[2024-07-25 05:41] LABS: INR 5.52 (0.80-1.30)
--- NOTE | 2024-07-25 06:10 | NUR ---
CALLED ABOUT CRITICAL LAB. RODOLFO STATE THAT WE WILL KEEP WATCHING IT. NO NEW ORDERS AT THIS TIME.
--- NOTE | 2024-07-25 06:30 | NUR ---
pt RESTED FOR MOST OF THE NIGHT. pt VITAL SIGNS DONE. pt PEED IN URINAL EVERY TIME. pt A&O X4. NO NEW DEFICITS AT THIS TIME.
--- NOTE | 2024-07-25 07:21 | NUR ---
VERBAL REPORT RECEIVED FROM JJ CORREIA. PT AWAKE AND ALERT IN BED. VISITORS X2 IN ROOM. NO REQUESTS AT THIS TIME.
--- NOTE | 2024-07-25 07:36 | NUR ---
Board has been updated and call light has been placed within reach. No further request from patient
[2024-07-25] MEDS ORDERED: AMLODIPINE BESYLATE 5 MG TAB PO SCH ×2 (09:00→10:15)
[2024-07-25] MEDS ORDERED: CEFTRIAXONE/SODIUM CHLORIDE 1 GM/100 ML PIGGYBACK IV SCH (09:00)
--- NOTE | 2024-07-25 09:20 | NUR ---
Spoke with Jeovanny and his family. Discussed options of IP rehab, SNF, HH for therapy. Pt is agreeable to [facility] and would prefer [facility] in [place], but would go to [facility] if there is not a bed open. Family ask questions and questions answered. Chart sent to Katharina at [facility] re[facility] and Vianey at [facility]. Called and left messages for both requesting a return call.
--- NOTE | 2024-07-25 09:41 | NUR ---
UR CLINICAL REVIEW: 2 MN FOR [facility]ERSAL[facility]-MEETS INPT FOR STROKE MEDICARE INPT 07/24/24 @ 1121 ORDER MATCHES REG NO AUTH REQUIRED PER MEDICARE GUIDELINES DISCHARGE IP REHAB VS SNF PENDING PT EVAL AND FAMILY CONFERENCE
[2024-07-25] MEDS ORDERED: ACETAMINOPHEN 500 MG TAB PO SCH (09:46)
--- NOTE | 2024-07-25 10:04 | NUR ---
I helped patient use his urinal with the help of surekha car. No further request from patient at this time. Call light has been placed within reach
--- NOTE | 2024-07-25 10:30 | NUR ---
WOUND CARE CONSULTED FOR PRESSURE INJURY TO SACRUM, RIGHT ELBOW LACERATION AND RIGHT UPPER ARM SKIN TEAR. HISTORY OF PRESENT ILLNESS: PT IS AN 89 YEAR OLD MALE ADMITTED ON 07/24/24 FOR A FALL, CVA AND UTI. SKIN TEAR AND LACERATION TO RIGHT ELBOW ASSESSED IN ER. LACERATION SUTURED IN ER. PAST MEDICAL HISTORY: A-FIB ON WARFARIN, CKD STAGE 4, BLADDER CANCER, CURRENT TREATMENT BCG, HTN, PVD WITH PREVIOUS TOE AMPUTATION. ALLERGIES: NKDA WOUND ASSESSMENT: SACRAL PRESSURE INJURY CLASSIFICATION: STAGE 3, PRESSURE INJURY SIZE: 1 CM X 0.5 CM X 0.1 CM WOUND BASE: 70% PINK GRANULAR TISSUE, 30% YELLOW TISSUE. EDGES: PROLIFERATIVE EXUDATE: Serosanguineous , SCANT AMOUNT. RAYMUNDO WOUND SKIN: INTACT PINK DRY WARM PT IS THIN WITH VERY LITTLE SUBCUTANEOUS TISSUE OVER THE SACRUM. HISTORY OF INCREASING WEAKNESS. DAUGHTER, GIL, WHO IS THE PRIMARY CAREGIVER STATES THAT THE SACRAL WOUND HAS BEEN PRESENT AND DEVELOPED AT HOME. EDUCATION ON PRESSURE INJURIES PROVIDED. PT CURRENTLY ON A WAFFLE STATIC OVERLAY. OLD DRESSING REMOVED, WOUND CLEANSED WITH NS AND PATTED DRY. NEW BORDERED, SILICONE FOAM, SACRAL DRESSING APPLIED. PT TOLERATED WELL. WOUND ASSESSMENT: RIGHT ELBOW SKIN TEAR/LACERATION, ETIOLOGY TRAUMATIC FROM FALL CLASSIFICATION: FULL THICKNESS SIZE: 4.1 CM X 3 CM X 0.1 CM WOUND BASE: 100% GRANULAR TISSUE. SUTURES IN WOUND BASE INTACT. EDGES: DIFFUSE ATTACHED EXUDATE: Serosanguineous , SMALL AMOUNT ON OLD DRESSING. RAYMUNDO WOUND SKIN: INTACT PINK DRY WARM OLD DRESSING REMOVED, WOUND CLEANSED WITH NS AND PATTED DRY. ADAPTIC IMPREGNATED WITH BACITRACIN APPLIED TO WOUND BASE AND SECURED WITH BORDERED FOAM DRESSING. PT TOLERATED WELL. WOUND ASSESSMENT: RIGHT UPPER, POSTERIOR ARM, TRAUMATIC CLASSIFICATION: SKIN TEAR, ISTAP TYPE 2 SIZE: 3 CM WOUND BASE: PINK, MOIST, NON-GRANULAR TISSUE. EDGES: NOT ATTACHED EXUDATE: Serosanguineous , SCANT AMOUNT ON OLD DRESSING. RAYMUNDO WOUND SKIN: INTACT PURPLE DRY WARM REMAINING SKIN FLAT RE-APPROXIMATED. WOUND CLEANSED WITH NS AND PATTED DRY. SKIN FLAP SECURED WITH STERI-STRIPS AND COVERED WITH TRANSPARENT ADHESIVE DRESSING. PT TOLERATED WELL. TREATMENT RECOMMENDATIONS SACRAL WOUND CLEANSE WITH NS AND PAT DRY. APPLY SILICONE FACED BORDERED FOAM DRESSING. CHANGE DRESSING EVERY OTHER DAY AND WHEN SOILED FOR LOOSE. USE WAFFLE STATIC OVERLAY ON BED SURFACE. TURN EVERY 2 HOURS, MONITOR BONIPROMINANCE FOR S/SX OF PRESSURE INJURY. RIGHT ELBOW CLEANSE WOUND WITH NS AND PAT DRY. IMPREGNATE ADAPTIC WITH BACITRACIN AND APPLIED TO WOUND BED. SECURE WITH BORDERED FOAM DRESSING. CHANGE DRESSING TWICE WEEKLY ON TUESDAYS AND SATURDAYS. RIGHT UPPER POSTERIOR ARM SKIN TEAR ASSESS STERI-STRIPS IN PLACE UNDER TRANSPARENT DRESSING DAILY. LEAVE IN PLACE UNTIL TRANSPARENT DRESSING FALLS OFF ON ITS OWN. AFTER THE TRANSPARENT DRESSING FALLS OFF CLEANSE WITH NS OVER THE STERI-STRIPS IN PLACE AND PAT DRY AND LEAVE OPEN TO AIR. RECOMMEND NUTRITION CONSULT. GOALS: HEAL
--- NOTE | 2024-07-25 12:26 | NUR ---
VISITED DURING SPIRITUAL CARE ROUNDS. PT APPEARED TO BE SLEEPING. VISITED WITH FAMILY IN ROOM. FAMILY SUPPORTIVE, EXPRESSED HOPE REGARDING RECOVERY AND VALUE OF THERAPY. ROLLER SETTER PROVIDED SUPPORTIVE PRESENCE, HOSPITALITY, ANTICIPATORY GUIDANCE, ANXIETY CONTAINMENT, PRAYER. FAMILY EXPRESSED GRATITUDE.
--- NOTE | 2024-07-25 13:11 | NUR ---
RECVD CALL FROM DASH AT [facility], THEY WILL HAVE BED AVAILABILITY THIS WEEK. ADVISED I HAVE FAXED THE CHART. DASH STATES SHE WILL LOOK FOR IT AND HAVE THE MD REVIEW.
--- NOTE | 2024-07-25 13:34 | NUR ---
PT SITS UP IN RECLINER, RESTS WITH EYES CLOSED, RESP EVEN AND UNLABORED.
--- NOTE | 2024-07-25 17:14 | NUR ---
PT UP WITH PHYSICAL TODAY, TOLERATES THIS WELL. SPENDS MAJORITY OF THE DAY IN RECLINER, TOLERATES THIS WELL. DOES NOT EAT MEALS WELL, PREFERS GLUCERNA SHAKES. WOUND CARE CONSULT COMPLETED, WOUNDS TO RIGHT UPPER ARM, RIGHT ELBOW AND SACRUM DRESSED, ORDERS IN CHART. TELEMETRY CONTINUES TO BE INPLACE, PT HAS BEEN IN SINUS RHYTHM, IRREGULAR RHYTHMS AND HAD PVCS TODAY. ECHO COMPLETED TODAY. RLE ROM LIMITED BY PAIN. RUE ROM LIMITED DUE TO ROTATOR CUFF TEAR, THIS CONTINUES EFFECT PTS ACTIVITY. TYLENOL, HOME MEDICATION CONTINUED TODAY AT REQUEST OF FAMILY, PT RECEIVING THIS NOW BID, SEE EMAR. PAIN WELL CONTROLLED. DR. REYNOLDS SPOKE WITH FAMILY TODAY, DAUGHTERS X2, AND SON. PLAN FOR PLACEMENT IS INPATIENT REHAB AT THIS TIME.
--- NOTE | 2024-07-25 18:40 | NUR ---
IN PT C/O PAIN NEAR L SCAPULA. HOT PACK PROVIDED. SPENSER GARDNER ALSO IN SPEAKING WITH FAMILY AND PROVIDING EDUCATION. PT UP IN RECLINER, CALL LIGHT IN LAP, 3 FAMILY MEMBERS PRESENT, NO OTHER NEEDS NOTED AT THIS TIME.
--- NOTE | 2024-07-25 19:10 | NUR ---
pt SITTING IN THE CHAIR. REPORT RECEIVED FROM SPENSER GARDNER. BOARD UPDATED. pt DENIES ANY OTHER NEEDS AT THIS TIME. CALL LIGHT WITHIN REACH.
--- NOTE | 2024-07-25 20:30 | NUR ---
ASSESSMENT AND VITAL SIGNS DONE. pt TRANSFERED TO BACK TO BED VIA 2PA WITH GAIT BELT AND FRONT WHEEL WALKER. pt USED THE URINAL AND WAS BALDDER SCANNED FOR 12 ML RESIDUAL. pt DENIES ANY OTHER NEEDS AT THIS TIME. pt A&O X4. FAMILY IN RM. CALL LIGHT WITHIN REACH.
--- NOTE | 2024-07-25 23:02 | NUR ---
IN RM TO REPOSITION pt WITH PILLOW UNDER LEFT HIP. pt DENIES ANY OTHER NEEDS AT THIS TIME. CALL LIGHT WITHIN REACH.
[2024-07-26] VITALS (11 sets, daily range): BP systolic 126–144; BP diastolic 53–64
--- NOTE | 2024-07-26 01:37 | NUR ---
ASSESSMENT AND VITAL SIGNS DONE. pt RIGHT ELBOW WAS LEAKING ONTO THE CHUX AND GOWN. DRESSING ON ELBOW CHANGED. pt DENIES ANY OTHER NEEDS AT THIS TIME. CALL LIGHT WITHIN REACH. pt RESPOSITIONED WITH PILLOWS UNDER BOTH HIPS.
--- NOTE | 2024-07-26 02:41 | NUR ---
PATIENT CALLED TO USE THE URINAL. PATIENT VOIDED 3OOML SLIGHTLY DARK URINE. NO FURTHER NEEDS EXPRESSED AT THIS TIME.
--- NOTE | 2024-07-26 03:13 | NUR ---
pt REPOSITIONED WITH PILLOW UNDER RIGHT HIP. RR EVEN AND UNLABORED. CALL LIGHT WITHIN REACH.
--- NOTE | 2024-07-26 05:05 | NUR ---
pt REPOSITIONED WITH NO PILLOWS UNDER BACK SIDE. pt DENIES ANY OTHER NEEDS AT THIS TIME. VITAL SIGNS DONE.
[2024-07-26 05:21] LABS: BASOPHILS 0.1 % (0-2); EOSINOPHILS 11.2 % (0-6); LYMPHOCYTES 19.7 % (24-44); MCHC 33.5 g/dl (30-36); MCV 89.5 fl (81-99); MONOCYTES 3.9 % (0-12); NEUTROPHILS 65.1 % (39-80); PLATELET COUNT 227 K/uL (140-440); RBC 3.35 M/ul (4.3-5.7)
[2024-07-26 05:38] LABS: ALBUMIN 1.8 g/dL (3.4-5.0); ALBUMIN/GLOBULIN RATIO 0.42 (1.1-2.4); ANION GAP 12.6 (7-21); BILIRUBIN, TOTAL 0.7 ng/dL (0.2-1.0); BUN/CREATININE RATIO 23.85 (6.0-28.6); CALCIUM 8.2 mg/dL (8.5-10.1); CREATININE, SERUM 2.18 mg/dL (0.70-1.30); POTASSIUM 3.6 mmol/L (3.5-5.1); PROTEIN, TOTAL 6.1 g/dL (6.4-8.2)
--- NOTE | 2024-07-26 06:34 | NUR ---
pt RESTED THROUGH OUT THE NIGHT. Q2H TURN. SKIN TEAR ON ELBOW, DRESSING CHANGED BECAUSE OF EXCESS LEAKING. OTHER DRESSING INTACT.
--- NOTE | 2024-07-26 07:20 | NUR ---
RECEIVED REPORT FROM JJ CORREIA. PT DAUGHTER TO BEDSIDE, CALL LIGHT WITHIN REACH.
--- NOTE | 2024-07-26 08:50 | NUR ---
PT UP TO CHAIR AWAKE, EATING BREAKFAST W/O DIFFICULTY. PT TAKES PO MEDICATIONS, COUGHS AFTERWARD BUT IS ABLE TO CLEAR AND RECOVER INDEPENDENTLY WITH COUGH. VSS. PT STATES NO CURRENT NEEDS, CALL LIGHT WITHIN REACH.
--- NOTE | 2024-07-26 09:00 | NUR ---
Board has been updated and patient has been moved to his recliner chair with using a gait belt. Patient was a two person transfer. Patient is eating breakfeast in recliner
--- NOTE | 2024-07-26 09:20 | NUR ---
Attempted to see pt x2. He is working with OT. Will return.
--- NOTE | 2024-07-26 10:40 | NUR ---
Received a call from Katharina at they are reviewing this chart for placement. She is requesting the newest notes. PT/OT have not seen this pt at this time.
--- NOTE | 2024-07-26 11:00 | NUR ---
PT UP TO CHAIR AWAKE, DENIES PAIN AT THIS TIME. PT CONTINUES TO HAVE LIMITED ROM ON RUE AND RLE. BLE CONTINUE TO HAVE EDEMA, DECREASED TO +2, PT WEARING COMPRESSION SOCKS FROM HOME. GENERALIZED EDEMA PRESENT IN RUE, ESPECIALLY TO WRIST/HAND AREA. SKIN TEAR TO R UPPER ARM UNCHANGED, NO NEW DRAINAGE. WOUND DRESSING TO R ELBOW CHANGED PER WOUND CARE ORDER D/T DRESSING BEING SOILED, PILLOW WITH CHUX PAD PLACED UNDER R ELBOW. ALLEVYN TO COCCYX C/D/I. ALLEVYN TO R CALF C/D/I. PT STATES NO CURRENT NEEDS AT THIS TIME, CALL LIGHT WITHIN REACH.
--- NOTE | 2024-07-26 11:06 | NUR ---
Called and left a message for Katharina at [place] [facility] re[facility]. Asked when and if they can take this pt.
--- NOTE | 2024-07-26 11:18 | NUR ---
PT NOT AVAILABLE FOR VISIT. CONNECTED WITH FAMILY IN HALLWAY. STRONG RELATIONAL RESOURCES IN EVIDENCE. CHANNEL SUPERVISOR PROVIDED SUPPORTIVE PRESENCE, HOSPITALITY, PRAYER. FAMILY EXPRESSED APPRECIATION.
--- NOTE | 2024-07-26 11:50 | NUR ---
Upon entrance to the room pt is working with PT, both daughters are in the room and both state that they are joint POA. Discussed discharge with daughters who are aware of the plan, daughters agree with the current plan set up through Care Coordination and are willing, without hesitation to sign the 2nd IMM letter.
--- NOTE | 2024-07-26 12:00 | NUR ---
Upon entry into the room Mr. Don was found to be in his chair, IV running and patent. Attempted to have Mr. Don sign the IMM letter after explaining the IMM letter required by Medicare recipients. Initially Mr Don was willing to sign the letter, and then started a lengthy discussion about his options for discharge and his perceived options of cost for different living situations. Mr. Don then shared that he did not want to sign the letter until there was a plan in place that he agreed with. Care Coordination has discussed multiple options for discharge including SNF, rehab and assisted living vs home where he is currently living alone as his is at a SNF facility. It was explained to Mr. Don that he cannot stay in the hospital indefinetly until he agrees on a plan if he is medically ready for discharge. The discharge appeal process is also explained, and the outcome of the appeal determination. Mr. Don continues to have questions and is hesitant to sign the letter at this time. This information has been shared with Care Coordination staff members who are assisting in formulation of his dc plan. Letter not signed at this time, Care Coordination team updated.
--- NOTE | 2024-07-26 12:15 | NUR ---
PT UP TO CHAIR, LUNCH TRAY SETUP FOR PT, PT STATES NO FURTHER NEEDS AT THIS TIME, CALL LIGHT WITHIN REACH.
--- NOTE | 2024-07-26 13:11 | NUR ---
PT UP TO CHAIR, STATES HE HAS FINISHED EATING LUNCH, TRAY REMOVED, PT REQUESTS MORE WATER, GIVEN. PT STATES NO FURTHER NEEDS AT THIS TIME, CALL LIGHT WITHIN REACH.
[2024-07-26 13:16] LABS: INR 3.61 (0.80-1.30); PROTIME 34.9 Sec (11.2-14.2)
[2024-07-26] MEDS ORDERED: ASPIRIN 81 MG CHEW PO SCH (14:38)
[2024-07-26] MEDS ORDERED: CLOPIDOGREL BISULFATE 75 MG TAB PO SCH (14:40)
--- NOTE | 2024-07-26 14:50 | NUR ---
DIGITAL MEDIA BUYER AT THE BEDSIDE, DAUGHTER AT THE BEDSIDE. CALL LIGHT WITHIN REACH, NO NEEDS STATED AT THIS TIME.
--- NOTE | 2024-07-26 15:30 | NUR ---
Received a copied text from Katharina from their Dr. Liu. He would like the pt to be seen first thing int he am by PT/OT and would also like ST to see this pt. I spoke with Dr. Reynoso and he does not feel pt needs ST assessment. Pt has been eating and swalling without issue. I let Katharina know our therapist are scheduled in two different buildings. I will contact and see if they can see the pt early AM tomorrow. I also asked Katharina if her general feeling is Dr. Liu will say no to admission. Pts chart was faxed to [facility] in [place] yesterday. I will contact them to see if they can accept him. Per Katharina, Dr. Liu is filling in for Dr. Anthony and he is much more conservative than Dr. Anthony their primary physician.
[2024-07-26] MEDS ORDERED: WARFARIN PER PHARMACY PROTOCOL PO SCH (16:00)
--- NOTE | 2024-07-26 16:01 | NUR ---
Texted Lissette SANTOS and she states she can see Bill in the am. I am unsure if OT is available in the early am.
--- NOTE | 2024-07-26 16:10 | NUR ---
PT UP TO CHAIR VISITING WITH FAMILY, PT AND FAMILY STATE NO CURRENT NEEDS, CALL LIGHT WITHIN REACH.
--- NOTE | 2024-07-26 16:45 | NUR ---
PT USES CALL LIGHT, STATES HE NEEDS TO USE RESTROOM. PT UP TO RESTROOM WITH 1PA AND FWW, VOIDS, BACK TO CHAIR. PILLOWS USED TO REPOSITION PT IN CHAIR. PT STATES NO FURTHER NEEDS AT THIS TIME, CALL LIGHT WITHIN REACH.
[2024-07-26] MEDS ORDERED: WARFARIN SOD HOLD 1 EA PO SCH (17:00)
--- NOTE | 2024-07-26 17:47 | NUR ---
PT UP TO CHAIR, STATES NO NEEDS AT THIS TIME, CALL LIGHT WITHIN REACH.
--- NOTE | 2024-07-26 18:38 | NUR ---
PT UP TO CHAIR EATING DINNER INDEPENDENTLY, PT STATES NO NEEDS AT THIS TIME, CALL LIGHT WITHIN REACH.
--- NOTE | 2024-07-26 19:10 | NUR ---
REPORT RECEIVED FORM FAM GARDNER. pt RESTING IN THE CHAIR. DINNER DEWAYNE TAKEN AWAY. BOARD UPDATED. pt DENIES ANY OTHER NEEDS AT THIS TIME. CALL LIGHT WITHIN REACH.
--- NOTE | 2024-07-26 20:56 | NUR ---
OCCUPATIONAL THERAPY SPECIALIST OBTAINED VITALS AND INTAKE. NO NEW OUTPUT AT THIS TIME. PT STATED THAT HE WANTED TO REMAIN IN CHAIR FOR A BIT LONGER. PT STATES NO FURTHER NEEDS AT THIS TIME. CALL LIGHT WITHIN REACH AND CHAIR ALARM ON.
[2024-07-26] MEDS ORDERED: ATORVASTATIN 40 MG TAB PO SCH (21:00)
--- NOTE | 2024-07-26 21:05 | NUR ---
NEW TELE BATTERY IN PLACE, pt AWOKE EASILY TO VOICE. DENIES NEEDS OR CONCERNS. CALL LIGHT IN REACH AND CHAIR ALARM ON FOR SAFETY.
--- NOTE | 2024-07-26 21:25 | NUR ---
pt RESTING IN THE CHAIR AND STATES HE WANTS TO STAY IN IT FOR NOW. ASSESSMENT DONE. ALL DRESSINGS CDI. WATER REFRESHED. pt A&O X4. pt DENIES ANY OTHER NEEDS AT THIS TIME. CALL LIGHT WITHIN REACH.
--- NOTE | 2024-07-26 23:20 | NUR ---
CALL LIGHT ANSWERED. PT STATED THAT HE NEEDED TO USE BATHROOM. FURNITURE REFINISHER AND PRIMARY RN ASSISTED PT WITH FWW TO BATHROOM. PT VOIDED AND WAS ASSISTED TO BED. PT GIVEN FRESH ICE WATER. PT STATES NO FURTHER NEEDS AT THIS TIME. CALL LIGHT WITHIN REACH.
[2024-07-27 01:05] VITALS: BP 134/72
[2024-07-27 01:06] VITALS: BP 134/72
--- NOTE | 2024-07-27 01:10 | NUR ---
ASSESSMENT AND VITAL SIGNS DONE. pt RESTING IN THE BED. pt DENIES ANY OTHER NEEDS AT THIS TIME. pt REPOSITIONED WITH PILLOWS UNDER BOTH HIPS. CALL LIGHT WITHIN REACH.
--- NOTE | 2024-07-27 03:44 | NUR ---
pt RESTING IN THE BED. pt REPOSITIONED WITH PILLOW UNDER LEFT HIP. CALL LIGHT WITHIN REACH. pt DENIES ANY OTHER NEEDS AT THIS TIME.
[2024-07-27 04:56] VITALS: BP 150/67
--- NOTE | 2024-07-27 05:00 | NUR ---
CALL LIGHT ANSWERED. PT NEEDED TO USE BATHROOM. SOCIAL SECURITY ASSESSOR AND RN 2PA WITH FWW TO PATHROOM. PT VOIDED AND ASSISTED BACK TO BED. VITALS AND I&O OBTAINED AND DOCUMENTED. PT GIVEN FRESH ICE WATER AND PILLOW PLACED UNDER RIGHT HIP. PT STATES NO FURTHER NEEDS AT THIS TIME. CALL LIGHT WITHIN REACH.
[2024-07-27 05:29] LABS: BASOPHILS 1.4 % (0-2); EOSINOPHILS 12.7 % (0-6); HEMOGLOBIN 9.8 g/dL (12.0-18.0); LYMPHOCYTES 22.2 % (24-44); MCH 30.1 (27-36); MCHC 33.7 g/dl (30-36); MCV 89.5 fl (81-99); MONOCYTES 2.6 % (0-12); NEUTROPHILS 61.1 % (39-80); PLATELET COUNT 273 K/uL (140-440); RBC 3.24 M/ul (4.3-5.7); RDW 15.1 (10.5-15.0)
[2024-07-27 05:38] LABS: INR 3.03 (0.80-1.30); PROTIME 30.3 Sec (11.2-14.2)
[2024-07-27 05:40] LABS: ANION GAP 14.7 (7-21); BUN/CREATININE RATIO 24.24 (6.0-28.6); CALCIUM 8.3 mg/dL (8.5-10.1); CREATININE, SERUM 2.31 mg/dL (0.70-1.30); POTASSIUM 3.7 mmol/L (3.5-5.1)
--- NOTE | 2024-07-27 05:59 | NUR ---
pt RESTED THROUGH OUT THE NIGHT. pt 2PA TO THE BR WITH FWW. pt A&O X4. SKIN TEAR DRESSING CDI. pt OWN COMPRESSION STOCKINGS ON.
--- NOTE | 2024-07-27 07:22 | NUR ---
REPORT RECEIVED FROM MASOOD GARDNER, ALL QUESTIONS ANSWERED. PT AWAKE LYING IN BED, DENIES NEEDS AT THIS TIME. FAMILY AT BEDSIDE. CALL LIGHT IN REACH.
--- NOTE | 2024-07-27 09:20 | NUR ---
In and spoke with pt and daughter, Julieth. Family are anxious for any news. Updated pt has not been accepted at this time. [facility] is requesting notes for today and therapist were scheduled to see other pt. They will see Bill shortly. I will fax notes when completed. I will let them know as soon as I hear anything.
--- NOTE | 2024-07-27 09:34 | NUR ---
VISITED DURING SPIRITUAL CARE ROUNDS. PT SUPPORTED BY DAUGHTER IN ROOM. PT AND DAUGHTER BOTH EXPRESSED POSITIVE OUTLOOK, ANTICIPATION OF SUCCESSFUL PLACEMENT. AIRPLANE TESTER PROVIDED SUPPORTIVE PRESENCE, HOSPITALITY, PRAYER. PT AND DAUGTHER EXPRESSED GRATITUDE, HOPE.
[2024-07-27 10:17] VITALS: BP 115/708
--- NOTE | 2024-07-27 10:20 | NUR ---
MORNING ASSESSMENT COMPLETE. PT SITTING UP IN CHAIR. DENIES PAIN AT THIS TIME. DRESSING TO ELBOW CDI, COBAN LOOSENED. SWELLING NOTED TO RIGHT FOREARM, NOTICED INCREASED DARK RED/PURPLE AREA OF INDURATION ON INNER RIGHT WRIST. PT DENIES PAIN TO AREA AT THIS TIME. DR REYNOLDS NOTIFIED. CLEAR LUNG SOUNDS. PT DENIES NEEDS AT THIS TIME. CALL LIGHT IN REACH, CHAIR ALARM ON AND FAMILY AT BEDSIDE.
[2024-07-27] MEDS ORDERED: DIPHTH,PERTUSS(ACELL),TET VAC 0.5 ML SYRINGE IM ONE (10:45)
[2024-07-27 10:57] VITALS: BP 128/55
--- NOTE | 2024-07-27 11:06 | NUR ---
PT/OT notes completed and Progress note from Dr. Reynoso now complete. Faxed to [facility] rehab and texted Katharina to let her know.
--- NOTE | 2024-07-27 11:38 | NUR ---
DR REYNOLDS IN ROOM ROUNDING ON PT, ASSESSING RIGHT WRIST SWELLING. PICTURES TAKEN OF RIGHT WRIST AND PLACED IN CHART.
[2024-07-27] MEDS ORDERED: ASPIRIN81 MG PO (12:28)
[2024-07-27] MEDS ORDERED: CLOPIDOGREL75 MG PO (12:28)
[2024-07-27] MEDS ORDERED: LIPITOR40 MG PO (12:28)
--- NOTE | 2024-07-27 12:29 | NUR ---
Notified by Katharina they will need to move admit back to 3:30. Family notified.
--- NOTE | 2024-07-27 12:30 | NUR ---
Copied pictures of wounds and xray of wrist and placed in envelope and given to charge nurse.
--- NOTE | 2024-07-27 12:40 | NUR ---
Notified by Katharina, they will accept this pt today at 3pm. Received Doc to Doc phone number and nurse to nurse number to call. Notified by Dr Reynoso pt has a large swollen area on the inside of his R wrist and they have ordered an xray. Updated [facility] has accepted him. Dr. canaless pt can still dc today. He will call Dr. Liu for Doc to Doc call. Updated family and daughter, Julieth, will transport him. They will take him at 2 pm. She familiar with [facility]. They have already pack his clothing in the car. They deny any further needs.
--- NOTE | 2024-07-27 13:35 | NUR ---
DC summary faxed to Katharina at [facility]. Pt will dc at 2:30 with daughter to drive him to [facility].
--- NOTE | 2024-07-27 13:40 | NUR ---
DRESSING TO RIGHT ELBOW SATURATED WITH SEROSANG DRAINAGE, DRESSING CHANGED PER WOUND CARE ORDERS. PT TOLERATED WELL. DISCHARGE INSTRUCTIONS REVIEWED WITH PT AND FAMILY, VERBALIZED UNDERSTANDING WITH NO FURTHER QUESTIONS.
[2024-07-27 13:47] VITALS: BP 132/56
[2024-07-27] MEDS ORDERED: WARFARIN SOD 2.5 MG TAB PO ONE (14:00)
[2024-07-27] MEDS ORDERED: WARFARIN SOD 2.5 MG TAB PO SCH (16:00)
[2024-07-27] MEDS ORDERED: WARFARIN SOD HOLD 1 EA PO SCH (16:00)
== END 2024-07-27 14:35 | DRG 65 ==
LOC: ED 08:29 → MS 11:21
PROVIDERS: Emergency Medicine; Family Medicine; ADMIT Student in an Organized Health Care Education/Training Program; ATTEND Student in an Organized Health Care Education/Training Program
PROC: 0HQFXZZ Repair Right Hand Skin, External Approach (ICD-10-PCS; principal; 2024-07-24)
DX: I63.81 Other cerebral infarction due to occlusion or stenosis of small artery (principal); N17.9 Acute kidney failure, unspecified; N39.0 Urinary tract infection, site not specified; N18.4 Chronic kidney disease, stage 4 (severe); I48.91 Unspecified atrial fibrillation; I12.9 Hypertensive chronic kidney disease with stage 1 through stage 4 chronic kidney disease, or unspecified chronic kidney disease; E04.1 Nontoxic single thyroid nodule; I65.22 Occlusion and stenosis of left carotid artery; E86.0 Dehydration; C67.9 Malignant neoplasm of bladder, unspecified; S51.811A Laceration without foreign body of right forearm, initial encounter; W18.30XA Fall on same level, unspecified, initial encounter; I73.9 Peripheral vascular disease, unspecified; Z90.49 Acquired absence of other specified parts of digestive tract; Z90.89 Acquired absence of other organs; Z89.422 Acquired absence of other left toe(s); Z89.421 Acquired absence of other right toe(s); Z79.899 Other long term (current) drug therapy; Z79.01 Long term (current) use of anticoagulants
CPT/HCPCS: 12004; 36415; 51798; 70450; 70551; 71045; 72125; 73030; 73070; 73100; 73502; 76536; 80048; 80053; 80061; 81001; 83036; 83735; 83880; 84439; 84443; 84484; 85025; 85610; 87088; 90715; 93005; 93010; 93306; 93880; 97116; 97162; 97166; 97530; 97535; 99285-25; A9270; G0480; J0696; J7030; J7040